=== PATIENT | male | born 1975 | race Caucasian/White ===

== ENCOUNTER 2016-05-28 07:39 | Inpatient (IN) ==
[2016-05-28] MEDS ORDERED: HYDROmorphone 2 MG/1 ML VIAL IV STA ×2 (08:26→09:18)
[2016-05-28] MEDS ORDERED: ONDANSETRON 4 MG/2 ML VIAL IV STA (08:26)
[2016-05-28] MEDS ORDERED: SODIUM CHLORIDE 0.9% 1,000 ML IV STA (08:26)
[2016-05-28] MEDS ORDERED: ONDANSETRON 4 MG/2 ML VIAL ONE (08:37)
[2016-05-28] MEDS ORDERED: HYDROmorphone 2 MG/1 ML VIAL ONE ×2 (08:37→11:57)
[2016-05-28 08:48] LABS: Basophils # 0.1 10*3/uL (0.0-0.2); Basophils % 0.7 % (0.0-0.8); Eosinophils # 1.4 10*3/uL (0.0-0.87); Eosinophils % 12.2 % (0.00-10.9); Hematocrit 38.6 VOL% (42.0-52.0); Hemoglobin 12.1 GM/DL (14.0-18.0); Immature Granulocytes % 0.6 %; Immature Granulocytes Absolute 0.07 #; Lymphocytes # 2.2 10*3/uL (1.4-4.0); Lymphocytes % 19.2 % (21.2-54.2); Mean Corpuscular HGB Conc 31.3 GM/DL (32-36); Mean Corpuscular Hemoglobin 26 PG (27-34); Mean Corpuscular Volume 83.5 FL (87-102); Mean Platelet Volume 9.4 FL (9.6-12.0); Monocytes # 0.3 10*3/uL (0.11-0.8); Monocytes % 2.6 % (1.7-12.7); Neutrophils # 7.4 10*3/uL (1.4-7.4); Neutrophils % 64.7 % (38.7-73.9); Platelet Count 389 10*3/uL (130-400); Red Blood Count 4.62 10*6/uL (3.8-5.5); Red Cell Distribution Width 16.4 % (9.3-17.3); White Blood Count 11.4 10*3/uL (4.5-13.71)
[2016-05-28 09:19] LABS: Lactic Acid 1.7 MMOL/L (0.4-2.0)
[2016-05-28 09:34] LABS: Alanine Aminotransferase 27 U/L (16-61); Albumin 3.7 G/DL (3.4-5.0); Alkaline Phosphatase 115 U/L (45-117); Aspartate Amino Transferase 17 U/L (0-37); Bilirubin,Total < 0.39 MG/DL (0.2-1.0); Blood Urea Nitrogen 18 MG/DL (7-18); Calcium 8.7 MG/DL (8.5-10.1); Glucose 110 MG/DL (74-106); Potassium 4.3 MMOL/L (3.5-5.1); Sodium 143 MMOL/L (136-145); Total Protein 6.8 G/DL (6.4-8.3)
[2016-05-28 09:50] LABS: Band Neutrophils 1 % (0-10); Eosinophils 11 % (0-10); Hypochromasia 1+; Lymphocytes 17 % (20-55); Platelet Estimate Adequate; Segmented Neutrophils 68 % (50-85); Target Cells Slight; Total Cells Counted 100
--- NOTE | 2016-05-28 10:13 | CT Report ---
CT abdomen pelvis w con Indication: Generalized abdominal pain. Comparison: CT of abdomen and pelvis April 29, 2010. Technique: CT of the abdomen and pelvis was performed following administration of intravenous contrast. Findings: Lower chest demonstrates pleural-based pulmonary nodule within the right middle lobe measuring 4-5 mm in size. This has changed little in size or appearance since April 2010. Lower lungs otherwise are clear. Heart size is normal. Enlarged lymph nodes adjacent the lesser curvature of the stomach along branches of the gastric artery are stable in size to perhaps slightly decreased in size compared to the previous study. Additional enlarged lymph nodes bordering the hepatic artery also appears stable. Portacaval lymph nodes are stable. Surgical changes exist suggesting right hemicolectomy. Ileocolic lymph nodes and mesenteric lymph nodes are enlarged, but have changed little in size since comparison study. Additional aorto-intercaval lymph node image #87 is stable. The terminal small bowel demonstrates circumferential wall thickening is demonstrated on image #98 with the lumen of the small bowel becoming nearly indistinguishable secondary to wall thickening image #90. Proximal to this within the distal small bowel, there is extensive small bowel stool present suggesting that this could reflect a developing point of obstruction with existing partial obstruction. These areas of bowel wall thickening and luminal narrowing persists in the delayed phase. Differential considerations could include entities such as inflammatory bowel disease as well as other infiltrative processes such as small bowel lymphoma, correlation with prior history may be useful. A new moderately enlarged left inguinal lymph node is demonstrated which has increased in size since comparison study now measuring 2.8 x 1.9 cm. Additional left pelvic sidewall lymph node is enlarged, but has changed little in size since comparison study. Bony structures demonstrate no evidence of acute pathology. Mild stimulator device is noted within the posterior flank on the right. Extensive sclerotic change/attenuation of the SI joints is noted bilaterally and appear stable compared to prior study. Otherwise, the imaged structures of the lower chest, liver, spleen, pancreas, adrenal glands, kidneys, aorta, inferior vena cava, stomach, bowel, and intrapelvic contents as well as bony structures soft tissues and musculature the body wall demonstrate no evidence of significant pathology. Impression: 1. Multiple enlarged lymph nodes are noted within the upper abdomen, retroperitoneum, pelvis, and ileocolic mesentery. The majority of these lymph nodes appear to be stable in size and number. There is a lymph node within the left inguinal region however, that has increased in size since the comparison study as detailed. Differential considerations could include reactive etiologies as well as recurrent lymphoma in the correct clinical scenario. Correlation with patient's known clinical history is recommended. 2. Circumferential bowel wall thickening involving the terminal small bowel at as well as proximal to the anastomosis with the large bowel narrows the lumen of the small bowel significantly with these findings persisting into the delayed phase. Additionally, proximal to this narrowed segment, a significant amount small bowel stool is present suggesting stasis. More proximal small bowel loops also slightly distended. Differential considerations for this appearance could include small bowel lymphoma as well as inflammatory bowel disease. Correlation with prior known clinical history is recommended. 3. Bilateral sacroiliac joint sclerotic changes are noted. These findings are nonspecific but can be associated with inflammatory bowel disease. Other findings as detailed. 05/28/2016 9:17 AM PROCEDURE INTERPRETED AT [facility] DEPARTMENT OF RADIOLOGY Final Report Signed by: Dr. Jonathan Salmon
--- NOTE | 2016-05-28 10:54 | Emergency Department Note ---
Saeid Huff Brittany, am scribing for, and in the presence of, Chivo Bourgeois MD 08:29. Bk Huff Doug C, MD, personally performed the services described in this documentation, ascribed by Gabrielle Breaux in my presence, and it is both accurate and complete . Arrival - Arrival Chief Complaint: Abdominal / Flank Pain Stated Complaint: N/V/D BLOOD IN STOOL, DIZZY, AND ABD CRAMPS ED Nursing Triage Note: c/o having abd.cramps since last evening, states has a history of hemorrhoids and now is having bright red stools x 2 this am., denies having temp., + chills., Mode of Arrival: Wheelchair Limitations: No Limitations Source: Patient, RN Notes Reviewed Time Seen by Provider: 05/28/16 08:19 - History of Present Illness HPI Narrative: Patient is a 40-year-old black male who presents emergency room complaining of abdominal cramping and bloody diarrhea that started this morning. Patient states he is having some chills and sweats associated with this. He has a history of Crohn's disease and is on no medical treatment for his Crohn's at present. Patient states he had a previous bowel resection at least 10 years ago states she has not had any trouble with his Crohn's disease since then. He denies any urinary symptoms and is not having any respiratory symptoms as well. Allergies/Adverse Reactions: Allergies Allergy/AdvReac Type Severity Reaction Status Date / Time No Known Allergies Allergy Unverified 05/28/16 07:53 Review of System - Review of System 12 point system: reviewed and no additional remarkable complaints except as stated - Review of System Constitutional: Present: chills, fever Eyes: Absent: vision change Head/Ears/Nose/Throat: Absent: nasal drainage Respiratory: Absent: respiratory distress Cardiovascular: Absent: chest pain, palpitations Gastrointestinal: Present: abdominal pain, nausea, vomiting, hematochezia Genitourinary male: Absent: urgency, dysuria, frequency Musculoskeletal: Absent: arm pain, back pain, leg pain, neck pain Skin: Absent: rash Neurological: Absent: headache Psychiatric: Absent: anxiety, depression Endocrine: Absent: fatigue Hematological/Lymphatic: Absent: easy bleeding, easy bruising Medical,Surgical,& Family Hx - Medical History Gastrointestinal: History of: Crohn's Disease Musculoskeletal: History of: Back/Neck Problems (chronic leg pain) - Surgical History Abdominal Surgeries: Surgical HX of: Abdominal Surgery (Bowel resection) - Family History Family History: noncontributory - Social History Smoking Status: Smoker, status unknown Frequency of Alcohol Use: None Type of Drug Use: None Exam Vital Signs: Vital Signs Temperature 98.2 F 05/28/16 07:48 Pulse Rate 76 05/28/16 10:22 Respiratory Rate 14 05/28/16 09:18 Blood Pressure 126/89 05/28/16 10:22 O2 Sat by Pulse Oximetry 100 05/28/16 09:18 - General General appearance: alert, in no apparent distress - Head Head exam: Present: atraumatic, normocephalic - Eye Eye exam: Present: PERRL, EOMI - ENT ENT exam: Present: normal oropharynx, mucous membranes moist, other (edentulous) - Neck Neck exam: Present: full ROM, trachea midline. Absent: tenderness - Chest Chest inspection: Present: symmetric chest wall rise. Absent: tenderness - Respiratory Respiratory exam: Present: normal lung sounds bilaterally. Absent: rales, rhonchi, wheezes - Cardiovascular Cardiovascular exam: Present: regular rate, normal rhythm, normal heart sounds. Absent: murmur, rubs, gallop - Abdominal Exam Abdominal exam: Present: soft, tenderness (Mild diffuse direct tenderness), normal bowel sounds. Absent: distention, guarding, rebound - Extremities Exam Extremities exam: Present: full ROM. Absent: tenderness - Back Exam Back exam: Present: full ROM. Absent: tenderness - Neurological Exam Neurological exam: Present: alert, oriented X3, CN II-XII intact. Absent: motor sensory deficit - Psychiatric Psychiatric exam: Present: normal affect, normal mood - Skin Skin exam: Present: warm, dry, intact, normal color Course Course Narrative: Patient's clinical presentation, laboratory and radiographic findings were discussed with Dr. Gonzales. He will arrange for the patient to be admitted to the hospitalist service. Results - Labs CBC & BMP: 05/28/16 08:05 05/28/16 08:05 Lab Results: I have reviewed the patients labs Labs: Laboratory Tests 05/28/16 08:05 WBC 11.4 RBC 4.62 Hgb 12.1 L Hct 38.6 L MCV 83.5 L MCH 26 L MCHC 31.3 L RDW 16.4 Plt Count 389 MPV 9.4 L Neut % (Auto) 64.7 Lymph % (Auto) 19.2 L Union % (Auto) 2.6 Eos % (Auto) 12.2 H Baso % (Auto) 0.7 Neut # (Auto) 7.4 Lymph # (Auto) 2.2 Union # (Auto) 0.3 Eos # (Auto) 1.4 H Baso # (Auto) 0.1 Immature Gran % 0.6 Nucleated RBC % 0.0 Immature Gran # 0.07 Nucleated RBCs # 0.00 Laboratory Tests 05/28/16 05/28/16 08:05 08:05 Sodium 143 Potassium 4.3 Chloride 109 H Carbon Dioxide 22 Anion Gap 16.3 H BUN 18 Creatinine 1.10 GFR Calculation 103 BUN/Creatinine Ratio 16.00 Glucose 110 H Calculated Osmolality 287.0 Lactic Acid 1.7 Calcium 8.7 Total Bilirubin < 0.39 AST 17 ALT 27 Alkaline Phosphatase 115 C-Reactive Protein 1.13 H Total Protein 6.8 Albumin 3.7 Globulin 3.1 Albumin/Globulin Ratio 1.1 Laboratory Tests 05/28/16 08:05 Blood Type A POSITIVE Antibody Screen Negative Laboratory Tests 05/28/16 08:05 WBC 11.4 RBC 4.62 Hgb 12.1 L Hct 38.6 L MCV 83.5 L MCH 26 L MCHC 31.3 L RDW 16.4 Plt Count 389 MPV 9.4 L Neut % (Auto) 64.7 Lymph % (Auto) 19.2 L Union % (Auto) 2.6 Eos % (Auto) 12.2 H Baso % (Auto) 0.7 Neut # (Auto) 7.4 Lymph # (Auto) 2.2 Union # (Auto) 0.3 Eos # (Auto) 1.4 H Baso # (Auto) 0.1 Total Counted 100 Immature Gran % 0.6 Nucleated RBC % 0.0 Immature Gran # 0.07 Segmented Neutrophils 68 Band Neutrophils 1 Lymphocytes 17 L Monocytes 3 Eosinophils 11 H Nucleated RBCs # 0.00 Platelet Estimate Adequate Hypochromasia 1+ Target Cells Slight - Diagnostic Findings Procedure: CT Abdomen and Pelvis: report reviewed by me (1. Multiple enlarged lymph nodes are noted within the upper abdomen, retroperitoneum, pelvis, and ileocolic mesentery. The majority of these lymph nodes appear to be stable in size and number. There is a lymph node within the left inguinal region however, that has increased in size since the comparison study as detailed. Differential considerations could include reactive etiologies as well as current lymphoma in the correct clinical scenario. Correlation with patient's known clinical history is recommended; 2. Circumferential bowel wall thickening involving the terminal small bowel at as well as proximal to the anastamosis with the large bowel narrows the lumen of the small bowel significantly with these findings persisting into the delayed phase. Additionally, proximal to this narrowed segment, a significant amount of small bowel stool is present suggesting stasis. More proximal small bowel loops also slightly distended. Differential considerations for this appearance could include small bowel lymphoma as well as inflammatory bowel disease. Correlation with prior known clinical history is recommended; 3. Bilateral sacroiliac joint sclerotic changes are noted. These findings are nonspecific but can be associated with inflammatory bowel disease. Other findings are detailed. ) Disposition Clinical Impression: Hematochezia, Crohns disease Case discussed with: patient, patient's family Disposition: Still a Patient Condition: Stable Time of Disposition: 10:54
[2016-05-28 11:15] LABS: Apearance,Urine CLEAR (Clear); Bilirubin,Urine Negative (Negative); Blood, Urine Negative (Negative); Glucose,Urine (UA) Negative (Negative); Ketones,Urine Negative (Negative); Mucus,Urine Occasional /LPF (Occasional); Nitrite,Urine Negative (Negative); Protein,Urine Negative; RBC,Urine 3 /HPF (0-4); Squamous Epithelial Cell,Urine Occasional /HPF (0-10); Urine Color Yellow (Yellow); Urine Specific Gravity 1.055 (1.001-1.035); Urine Urobilinogen < 2.0 EU/DL (0.2-1.0); WBC,Urine 2 /HPF (0-6)
--- NOTE | 2016-05-28 11:29 | Hospitalist History & Physical ---
Assessment and Plan - Time spent with patient Time spent with patient: Greater than 30 minutes (1) Hematochezia Status: Acute Assessment and plan: We will admit him for IV hydration, serial hematocrits, and GI consultation. This is likely secondary to a Crohn's flare. I discussed with Dr. Corley, and I will defer initiating any corticosteroids or antibiotic therapy to him after he has evaluated. Current Visit: Yes (2) Crohns disease Status: Acute Assessment and plan: See above. Current Visit: Yes (3) Chronic pain syndrome Status: Chronic Assessment and plan: We'll continue his current regimen. He'll need to continue to follow up on outpatient basis. Current Visit: Yes History of Present Illness Chief complaint: bloody diarrhea History of present illness: Mr. Owens is a 40 year old male with history of Crohn's disease, chronic pain syndrome, peripheral arterial disease status post lower extremity stenting who presents with a 2-3 day history of lower abdominal cramping with associated nausea, emesis and watery diarrhea. He denies any associated fever or chills. He states that his abdominal cramping worsened this morning and he passed bright red blood per rectum on several occasions. He denies any chest pain, shortness breath, palpitations, skin rash, weight loss or weight gain, heartburn or indigestion, night sweats, headache, upper respiratory tract symptoms, dysuria, hematuria. His current medications include Neurontin 800 mg by mouth 4 times a day, Ambien daily at bedtime when necessary sleep, methadone 50 mg by mouth daily. He is currently searching for a primary care physician locally. Home Medications Medication Instructions Recorded Confirmed Type Butalb/Acetaminophen/Caffeine 1 tablet PO Q4-6H PRN 05/28/16 05/28/16 History [Czsiky-Ijszpjiu-Vjgh 50-325-40] Gabapentin [Gabapentin] 800 mg PO QID 05/28/16 05/28/16 History Methadone HCl [Methadone HCl] 50 mg PO DAILY 05/28/16 05/28/16 History Zolpidem Tartrate [Zolpidem 5 mg PO BEDTIME PRN 05/28/16 05/28/16 History Tartrate] Allergies Allergy/AdvReac Type Severity Reaction Status Date / Time No Known Allergies Allergy Unverified 05/28/16 07:53 Medical,Surgical,& Family Hx - Medical History Gastrointestinal: History of: Crohn's Disease Musculoskeletal: History of: Back/Neck Problems (chronic leg pain) - Surgical History Abdominal Surgeries: Surgical HX of: Abdominal Surgery (Bowel resection), Appendectomy Orthopedic Surgeries: Surgical HX of;: Implanted Devices (SCS) - Family History Family History: Reports;: Family Heart Disease, Additional Family History ( father has ulcerative colitis ) - Social History Smoking Status: Former smoker Have you smoked in the last 12 months: Yes Time spent discussing smoking cessation with patient: 3 to 10 minutes (mother had an [facility] in the past and is status post stenting) Frequency of Alcohol Use: None Type of Drug Use: None Marital Status: Lives With:: Parent Functional capacity: independent ambulation 12 point system: reviewed and no additional remarkable complaints except as stated Exam - Constitutional Vitals: Period Temp Pulse Resp BP Sys/[place] Pulse Ox Last 24 Hr 98.2 F 65-96 14-18 107-145/77-99 96-100 General appearance: mild distress - Head Head exam: Present: normocephalic, atraumatic - Eye Eye exam: Present: EOMI Pupils: Present: CHASE - ENT ENT exam: Present: normal oropharynx - Neck Neck exam: Absent: lymphadenopathy, meningismus, tenderness, thyromegaly - Respiratory Respiratory exam: Present: clear to auscultation bilaterally. Absent: rales, rhonchi, wheezes - Cardiovascular Cardiovascular exam: Present: regular rate and rhythm. Absent: gallop, JVD, systolic murmur, tachycardia - GI/Abdominal GI/Abdominal exam: Present: normal bowel sounds, soft. Absent: distended, mass , tenderness, rebound - Extremities Exam Extremities exam: Present: normal capillary refill. Absent: calf tenderness, edema - Back Exam Back exam: Present: normal inspection - Neurological Exam Neurological exam: Present: alert, oriented X3, CN II-XII intact. Absent: motor sensory deficit - Psychiatric Psychiatric exam: Present: normal affect, normal mood. Absent: agitated, anxious - Skin Skin exam: Present: warm, dry. Absent: erythema, rash Results - Labs CBC & BMP: 05/28/16 08:05 05/28/16 08:05 Lab Results: I have reviewed the past 24 hour labs - Diagnostic Findings Procedure: CT Abdomen and Pelvis: report reviewed by me Quality Measures - VTE Deep Vein Thrombosis/Pulmonary Embolism Present on Admission: No
[2016-05-28] MEDS ORDERED: HYDROmorphone 2 MG/1 ML VIAL IV ONE (11:56)
[2016-05-28] MEDS ORDERED: INFLUENZA VIRUS VACCINE 0.5 ML SYRINGE IM ONE (12:23)
[2016-05-28] MEDS: SODIUM CHLORIDE 0.45% 1,000 ML IV SCH ×2 (12:39→20:24)
[2016-05-28] MEDS: PANTOPRAZOLE 40 MG VIAL IV SCH (12:48)
[2016-05-28] MEDS: THIAMINE 200 MG/2 ML VIAL IV SCH (12:48)
[2016-05-28 13:13] LABS: Hematocrit 35.4 VOL% (42.0-52.0); Hemoglobin 11.1 GM/DL (14.0-18.0)
--- NOTE | 2016-05-28 13:27 | Gastrointestinal Consult Note ---
Assessment and Plan (1) Crohns disease Status: Acute Assessment and plan: This is a patient who was diagnosed initially in 1995 and this had multiple episodes of Crohn's flares over the years with chronic adenopathy noted throughout the colon and small bowel. I strongly suspect that he probably has upper and lower GI disease with his Crohn's. He is on no medications at this point. The most effective medication would likely be Entocort but will try him on Pentasa as well as treating underlying infections with a combination of Cipro and Flagyl. His stools are pending to look for evidence of infectious colitis/enteritis. We may tach on a colonoscopy during the terminal face of his hospitalization here. Agree with checking the CBC daily. Current Visit: Yes (2) Hematochezia Status: Acute Assessment and plan: The patient is having some rectal bleeding of unclear etiology this may be the Crohn's disease or hemorrhoidal bleeding with his mild diarrhea. Colonoscopy to follow this admission. Clear liquid diet for the present time. We may add on the colonoscopy for Monday05/31/16. Current Visit: Yes (3) Abnormal CT scan, gastrointestinal tract Status: Acute Assessment and plan: Patient has enlarged lymph nodes throughout his abdomen. We will look for evidence of classic Crohn's disease on colonoscopy to follow later this admission as mentioned above. We'll obtain a sedimentation rate as well to look for the overall activity of the Crohn's disease here in the short-term. Risks of colonoscopy include but are not limited to: Bleeding, infection, perforation, cardiac and pulmonary compromise. Current Visit: Yes History of Present Illness Chief complaint: possible Crohn's flare, abnormal CT scan History of present illness: Mr. Owens is a 40 year old male who has a history of Crohn's disease which was diagnosed [place] in [address] Weldon. He is not having flares on a routine basis at this time, his last real flare was approximately 5 years ago. Patient had seen also Dr. Costa for potential ERCP on 04/28/10 but unfortunately it was discovered that he had a Fidelia-Bui tear at that time and the procedure was aborted. This was being done to look for common bile duct stricturing. Patient has had popliteal aneurysms with recurrent thrombosis and stenting//grafts. He recently discontinued smoking approximately 3 weeks ago. This is the first flare he's had an approximately 1 year. He presented with cramps nausea and vomiting as well as increasing diarrhea over the last 2-3 days and today he developed severe pain in her right lower quadrant proximally 6 out of 10 in intensity and cramping as well. He is passing some scant amount of blood. Not have fevers or chills. He does not recall eating anything unusual out of the back of the refrigerator/spoiled food , oysters or sushi. He has not been around any sick contacts. He is interviewed in the presence of his mother who corroborates his story. The patient has undergone a right hemicolectomy as a result of his previous Crohn's disease. He has chronic pain in his legs and sees Eddi Ocampo a pain management physician in [place] who prescribes his methadone for him. He is wanting to see someone locally here in [place] instead. On previous admissions he has seen Dr. Rebolledo of total pain. He is only having proximally to 3 bowel movements per day but again these have become bloody lately. Been on Pentasa that he can recall. He typically does not take medications for his Crohn's. His last time to be scoped was approximately 5 years ago he thinks by Dr. Weldon. EMR does not demonstrate reports for this procedure. The patient 's abdominal pelvic CT scan done today demonstrates multiple large lymph nodes within the upper abdomen, retroperitoneum, pelvis and ileocolic mesentery is stable in size and number from earlier evaluations. Circumferential bowel wall thickening is noted in the terminal TI and proximal to the anastomosis of the large bowel bilateral sacroiliac sclerosis is noted associated with inflammatory bowel disease. Home Medications Medication Instructions Recorded Confirmed Type Butalb/Acetaminophen/Caffeine 1 tablet PO Q4-6H PRN 05/28/16 05/28/16 History [Wvrldr-Yqsifgcv-Wdcs 50-325-40] Gabapentin [Gabapentin] 800 mg PO QID 05/28/16 05/28/16 History Methadone HCl [Methadone HCl] 50 mg PO DAILY 05/28/16 05/28/16 History Zolpidem Tartrate [Zolpidem 5 mg PO BEDTIME PRN 05/28/16 05/28/16 History Tartrate] Allergies Allergy/AdvReac Type Severity Reaction Status Date / Time No Known Allergies Allergy Unverified 05/28/16 07:53 Medical,Surgical,& Family Hx - Medical History Gastrointestinal: History of: Crohn's Disease Musculoskeletal: History of: Back/Neck Problems (chronic leg pain) - Surgical History Neurologic Surgeries: Surgical HX of: Neurologic Surgery (neuro stimulatpr) Abdominal Surgeries: Surgical HX of: Abdominal Surgery (Bowel resection), Appendectomy Orthopedic Surgeries: Surgical HX of;: Implanted Devices (SCS) - Family History Family History: Reports;: Family Heart Disease, Additional Family History ( father has ulcerative colitis ) - Social History Smoking Status: Former smoker Frequency of Alcohol Use: None Type of Drug Use: None Review of systems: Constitutional: Denies fever, chills, positive for nausea, and vomiting Eyes: Denies dry eyes, and scleral icterus HENT: Denies headaches Cardiovascular: Denies acute chest pain and claudication Respiratory: Denies shortness of breath, wheezing, and difficulty breathing, denies cough Gastrointestinal: As noted in the HPI Genitourinary: Denies dysuria and hematuria Neurologic: Denies vision loss, and loss of sensation Musculoskeletal: He does have some joint swelling, joint stiffness, and muscular weakness Psychiatric: Denies depression and luis symptoms Heme-Lymph: Denies easy bruising, lymph node enlargement or tenderness, night sweats, excessive bleeding Allergies-immunologic: Denies pruritus and rhinorrhea Exam - Constitutional Vitals: Period Temp Pulse Resp BP Sys/[place] Pulse Ox Last 24 Hr 98.5 F 70-75 20-21 109-133/72-93 97-98 Exam: Constitutional: Well-developed, well-nourished, alert, and in no acute distress Head and face: Head: Normocephalic atraumatic Eyes: Conjunctiva without injection, no gross scleral icterus, pupils equal and round bilaterally Ears: Intact to conversation in both ears Nose: External appearance is normal, nares patent Mouth: Oral mucous membranes moist without erythema dentition noted to be without erosion Neck: Normal appearance, no masses or tenderness, trachea midline Thyroid: Gland midline and appropriate size for age Respiratory: Normal respiratory effort, clear to auscultation without wheezes, rhonchi or rales Cardiovascular: Regular rate and rhythm, normal S1, S2, the exam is without rubs, murmurs or gallops. Gastrointestinal: The patient has some minimal right lower quadrant tenderness to deep palpation but no other pain to palpation, normal active bowel sounds, tone normal without rigidity or guarding, no masses present, no hepatomegaly, no spleen tip felt. No rectal exam obtained. Lymphatic: Neck without adenopathy, axilla without lymphadenopathy present Musculoskeletal: Right and left lower extremities without evidence of edema Skin and subcutaneous tissue: No rashes or ulcerations noted, normal skin turgor, digits and nails without clubbing/cyanosis/deformities. Neurologic: The patient is grossly oriented to person place and time, cranial nerves show tongue movements are normal with normal tongue extrusion midline, light touch sensation is intact. Psychiatric: No hallucinations or delusions are present, does not appear depressed Results - Labs CBC & BMP: 05/28/16 12:50 05/28/16 08:05 Quality Measures - VTE Contraindication to Pharmacological VTE Prophylaxis: Active Bleeding Specialty Discharge - Follow Up or Referrals - Discharge Medications No Action Zolpidem Tartrate [Zolpidem Tartrate] 5 mg PO BEDTIME PRN PRN Reason: Insomnia Methadone HCl [Methadone HCl] 50 mg PO DAILY Gabapentin [Gabapentin] 800 mg PO QID Butalb/Acetaminophen/Caffeine [Ymttbt-Vajcmzjb-Yuas 50-325-40] 1 tablet PO Q4 -6H PRN PRN Reason: Headache
[2016-05-28] MEDS: MULTIVITAMIN INJ 10 ML in SODIUM CHLORIDE 0.45% 1,000 ML IV SCH (14:24)
[2016-05-28] MEDS: ONDANSETRON 4 MG/2 ML VIAL IV PRN (14:27)
[2016-05-28] MEDS: GABAPENTIN 400 MG CAPSULE PO SCH ×3 (14:28→20:08)
[2016-05-28] MEDS: MORPHINE 2 MG/1 ML SYRINGE IV PRN ×2 (15:52→20:25)
[2016-05-28] MEDS: CIPROFLOXACIN INJ 400 MG in PREMIX 1 EACH IV SCH (16:43)
[2016-05-28] MEDS: metroNIDAZOLE INJ 500 MG in PREMIX 1 EACH IV SCH (16:44)
[2016-05-28] MEDS ORDERED: MESALAMINE 250 MG CAPSULE PO SCH (17:00)
[2016-05-28 18:20] LABS: Hemoglobin 10.6 GM/DL (14.0-18.0)
[2016-05-28] MEDS: ZALEPLON 5 MG CAPSULE PO PRN (20:08)
[2016-05-29] MEDS: MORPHINE 2 MG/1 ML SYRINGE IV PRN ×5 (00:36→19:50)
[2016-05-29] MEDS: ONDANSETRON 4 MG/2 ML VIAL IV PRN ×4 (00:56→16:59)
[2016-05-29 01:05] LABS: Hematocrit 33.4 VOL% (42.0-52.0); Hemoglobin 10.7 GM/DL (14.0-18.0)
[2016-05-29 01:06] LABS: Basophils # 0.1 10*3/uL (0.0-0.2); Basophils % 0.7 % (0.0-0.8); Eosinophils # 0.9 10*3/uL (0.0-0.87); Eosinophils % 9.5 % (0.00-10.9); Hemoglobin 10.7 GM/DL (14.0-18.0); Immature Granulocytes % 0.4 %; Immature Granulocytes Absolute 0.04 #; Lymphocytes # 2.5 10*3/uL (1.4-4.0); Lymphocytes % 27.6 % (21.2-54.2); Mean Corpuscular HGB Conc 31.5 GM/DL (32-36); Mean Corpuscular Hemoglobin 27 PG (27-34); Mean Corpuscular Volume 85.2 FL (87-102); Mean Platelet Volume 9.2 FL (9.6-12.0); Monocytes # 0.3 10*3/uL (0.11-0.8); Monocytes % 3.7 % (1.7-12.7); Neutrophils # 5.3 10*3/uL (1.4-7.4); Neutrophils % 58.1 % (38.7-73.9); Platelet Count 318 10*3/uL (130-400); Red Blood Count 3.99 10*6/uL (3.8-5.5); Red Cell Distribution Width 16.5 % (9.3-17.3); White Blood Count 9.2 10*3/uL (4.5-13.71)
[2016-05-29] MEDS: metroNIDAZOLE INJ 500 MG in PREMIX 1 EACH IV SCH ×4 (01:10→22:43)
[2016-05-29 01:24] LABS: Albumin 3.2 G/DL (3.4-5.0); Bilirubin,Total 0.7 MG/DL (0.2-1.0); Calcium 7.2 MG/DL (8.5-10.1); Osmolality,Calculated 284.8 MOS/KG (273-304); Total Protein 6.1 G/DL (6.4-8.3)
[2016-05-29] MEDS: CIPROFLOXACIN INJ 400 MG in PREMIX 1 EACH IV SCH ×2 (02:52→15:04)
[2016-05-29] MEDS: SODIUM CHLORIDE 0.45% 1,000 ML IV SCH ×4 (05:52→11:56)
[2016-05-29 06:31] LABS: Hemoglobin 10.4 GM/DL (14.0-18.0)
[2016-05-29] MEDS: GABAPENTIN 400 MG CAPSULE PO SCH ×5 (09:12→22:33)
[2016-05-29] MEDS: METHADONE 10 MG TABLET PO SCH (09:13)
[2016-05-29] MEDS: THIAMINE 200 MG/2 ML VIAL IV SCH (09:14)
--- NOTE | 2016-05-29 09:15 | Hospitalist Progress Note ---
Assessment and Plan - Time spent with patient Time spent with patient: Less than 30 minutes (1) Hematochezia Status: Acute Assessment and plan: We will admit him for IV hydration, serial hematocrits, and GI consultation. This is likely secondary to a Crohn's flare. I discussed with Dr. Corley, and I will defer initiating any corticosteroids or antibiotic therapy to him after he has evaluated. 05/29/16: Continue with daily CBC. Patient is been started on empiric IV antibiotics as well as Pentasa by Dr. Corley. No plans for possible colonoscopy prior to discharge. Current Visit: Yes (2) Crohns disease Status: Acute Assessment and plan: See above. Current Visit: Yes (3) Chronic pain syndrome Status: Chronic Assessment and plan: We'll continue his current regimen. He'll need to continue to follow up on outpatient basis. Current Visit: Yes Hospitalist: Subjective Interval history: Mr. Owens continues to have intermittent abdominal cramping with some associated nausea but denies any vomiting. He denies any further diarrhea or bloody stools. He was seen by Dr. Pruitt yesterday was begun on empiric IV antibiotics as well as Pentasa. Stool studies are pending. Exam - Constitutional Vitals: Period Temp Pulse Resp BP Sys/[place] Pulse Ox Last 24 Hr 98.1 F-98.5 F 69-80 18-21 94-133/61-93 97-98 General appearance: no acute distress - Head Head exam: Present: normocephalic, atraumatic - Eye Eye exam: Present: EOMI Pupils: Present: CHASE - ENT ENT exam: Present: normal oropharynx - Neck Neck exam: Present: normal inspection - Respiratory Respiratory exam: Present: clear to auscultation bilaterally. Absent: rales, rhonchi, wheezes - Cardiovascular Cardiovascular exam: Present: regular rate and rhythm. Absent: systolic murmur - GI/Abdominal GI/Abdominal exam: Present: normal bowel sounds, tenderness (mildly tender diffusely without rebound or guarding). Absent: distended - Extremities Exam Extremities exam: Absent: calf tenderness, edema - Back Exam Back exam: Present: normal inspection - Neurological Exam Neurological exam: Present: alert, oriented X3, CN II-XII intact. Absent: motor sensory deficit - Psychiatric Psychiatric exam: Present: normal affect, normal mood. Absent: agitated, anxious - Skin Skin exam: Present: warm, dry. Absent: erythema, rash Results - Labs CBC & BMP: 05/29/16 06:09 05/29/16 00:47 Lab Results: I have reviewed the past 24 hour labs Quality Measures - VTE Contraindication to Pharmacological VTE Prophylaxis: Active Bleeding Specialty Discharge - Follow Up or Referrals - Discharge Medications No Action Zolpidem Tartrate [Zolpidem Tartrate] 5 mg PO BEDTIME PRN PRN Reason: Insomnia Methadone HCl [Methadone HCl] 50 mg PO DAILY Gabapentin [Gabapentin] 800 mg PO QID Butalb/Acetaminophen/Caffeine [Wygbpx-Etjdobxz-Ztzp 50-325-40] 1 tablet PO Q4 -6H PRN PRN Reason: Headache
[2016-05-29] MEDS: PANTOPRAZOLE 40 MG VIAL IV SCH (09:16)
[2016-05-29] MEDS: MULTIVITAMIN INJ 10 ML in SODIUM CHLORIDE 0.45% 1,000 ML IV SCH (12:35)
[2016-05-29] MEDS ORDERED: POLYETHYLENE GLYCOL POWDER 255 GM BOTTLE PO ONE (16:45)
--- NOTE | 2016-05-29 16:45 | Gastrointestinal Progress Note ---
Assessment and Plan (1) Crohns disease Status: Acute Assessment and plan: This is a patient who was diagnosed initially in 1995 and this had multiple episodes of Crohn's flares over the years with chronic adenopathy noted throughout the colon and small bowel. I strongly suspect that he probably has upper and lower GI disease with his Crohn's. He is on no medications at this point. The most effective medication would likely be Entocort but will try him on Pentasa as well as treating underlying infections with a combination of Cipro and Flagyl. His stools are pending to look for evidence of infectious colitis/enteritis. We may tach on a colonoscopy during the terminal face of his hospitalization here. Agree with checking the CBC daily. 05/29/16--Patient is still having some tenderness in the right lower quadrant. He would like to leave the hospital but earlier and so we will push up the colonoscopy took tomorrow and he can bowel prep adequately tonight. CBC repeat pending. Examined his colon to see if this is truly a Crohn's flare versus infectious colitis, we may put him on some Entocort if this does appear to be consistent with Crohn's as opposed to the Pentasa being use presently. Current Visit: Yes (2) Hematochezia Status: Acute Assessment and plan: The patient is having some rectal bleeding of unclear etiology this may be the Crohn's disease or hemorrhoidal bleeding with his mild diarrhea. Colonoscopy to follow this admission. Clear liquid diet for the present time. We may add on the colonoscopy for Monday05/31/16. 05/29/16-- we will be rechecking the patient's rectum tomorrow during colonoscopy to see if we can find a bleeding source. He's been on clear liquids and should be obtained to bowel prep tonight adequately to see the small bowel. Provided the examination of the colon looks all right he may be able to be fed and then discharge tomorrow post-colonoscopy. Current Visit: Yes (3) Abnormal CT scan, gastrointestinal tract Status: Acute Assessment and plan: Patient has enlarged lymph nodes throughout his abdomen. We will look for evidence of classic Crohn's disease on colonoscopy to follow later this admission as mentioned above. We'll obtain a sedimentation rate as well to look for the overall activity of the Crohn's disease here in the short-term. Risks of colonoscopy include but are not limited to: Bleeding, infection, perforation, cardiac and pulmonary compromise. 05/29/16-- Waiting on results of the colonoscopy tomorrow. Current Visit: Yes Gastroenterology - PN: Subj Interval history: Pain slightly better but diarrhea is down to just 1 per day. No other new complaints. Exam (Progress Note) - Constitutional Vitals: Period Temp Pulse Resp BP Sys/[place] Pulse Ox Last 24 Hr 98.0 F-98.5 F 63-80 18-20 92-130/61-68 96-99 General appearance: normal weight - Eye Eye exam: Present: EOMI Pupils: Present: CHASE - Respiratory Respiratory exam: Present: clear to auscultation bilaterally - Cardiovascular Cardiovascular exam: Present: regular rate and rhythm - GI/Abdominal GI/Abdominal exam: Present: normal bowel sounds, tenderness (assessment right lower quadrant consistent with Crohn's flare), soft. Absent: distended, guarding, rebound - Extremities Exam Extremities exam: Present: normal inspection - Neurological Exam Neurological exam: Present: alert, oriented X3, CN II-XII intact. Absent: motor sensory deficit - Psychiatric Psychiatric exam: Present: normal affect, normal mood - Skin Skin exam: Present: warm Results - Labs CBC & BMP: 05/29/16 12:43 05/29/16 00:47 Specialty Discharge - Follow Up or Referrals - Discharge Medications No Action Zolpidem Tartrate [Zolpidem Tartrate] 5 mg PO BEDTIME PRN PRN Reason: Insomnia Methadone HCl [Methadone HCl] 50 mg PO DAILY Gabapentin [Gabapentin] 800 mg PO QID Butalb/Acetaminophen/Caffeine [Beckdx-Ithhkghx-Gdhe 50-325-40] 1 tablet PO Q4 -6H PRN PRN Reason: Headache
[2016-05-29] MEDS: BISACODYL 5 MG TABLET PO SCH (16:57)
[2016-05-29 18:51] LABS: Hematocrit 34.2 VOL% (42.0-52.0); Hemoglobin 10.9 GM/DL (14.0-18.0)
[2016-05-29] MEDS ORDERED: MAGNESIUM CITRATE 300 ML BOTTLE PO ONE (21:00)
[2016-05-29] MEDS: ZALEPLON 5 MG CAPSULE PO PRN (22:44)
[2016-05-30] MEDS: MORPHINE 2 MG/1 ML SYRINGE IV PRN ×4 (01:25→20:51)
[2016-05-30] MEDS: CIPROFLOXACIN INJ 400 MG in PREMIX 1 EACH IV SCH (01:32)
[2016-05-30] MEDS: BISACODYL 5 MG TABLET PO SCH ×2 (01:32→11:51)
[2016-05-30] MEDS: metroNIDAZOLE INJ 500 MG in PREMIX 1 EACH IV SCH (05:52)
[2016-05-30 06:17] LABS: Basophils # 0.1 10*3/uL (0.0-0.2); Basophils % 0.6 % (0.0-0.8); Eosinophils # 0.6 10*3/uL (0.0-0.87); Eosinophils % 7.2 % (0.00-10.9); Hematocrit 34.5 VOL% (42.0-52.0); Hemoglobin 10.9 GM/DL (14.0-18.0); Immature Granulocytes % 0.3 %; Immature Granulocytes Absolute 0.02 #; Lymphocytes # 1.9 10*3/uL (1.4-4.0); Lymphocytes % 24.5 % (21.2-54.2); Mean Corpuscular HGB Conc 31.6 GM/DL (32-36); Mean Corpuscular Hemoglobin 27 PG (27-34); Mean Corpuscular Volume 84.6 FL (87-102); Mean Platelet Volume 9.8 FL (9.6-12.0); Monocytes # 0.3 10*3/uL (0.11-0.8); Monocytes % 3.7 % (1.7-12.7); Neutrophils # 4.9 10*3/uL (1.4-7.4); Neutrophils % 63.7 % (38.7-73.9); Platelet Count 299 10*3/uL (130-400); Red Blood Count 4.08 10*6/uL (3.8-5.5); Red Cell Distribution Width 16.2 % (9.3-17.3); White Blood Count 7.7 10*3/uL (4.5-13.71)
[2016-05-30 06:52] LABS: Calcium 8.4 MG/DL (8.5-10.1); Potassium 4.5 MMOL/L (3.5-5.1)
[2016-05-30] MEDS: PANTOPRAZOLE 40 MG VIAL IV SCH (08:59)
[2016-05-30] MEDS: THIAMINE 200 MG/2 ML VIAL IV SCH (09:02)
--- NOTE | 2016-05-30 10:52 | Hospitalist Progress Note ---
Assessment and Plan (1) Crohns disease Status: Acute Assessment and plan: He is to undergo colonoscopy today. Await GI recommendations. Current Visit: Yes Exam - Constitutional Vitals: Period Temp Pulse Resp BP Sys/[place] Pulse Ox Last 24 Hr 98.1 F-98.7 F 66-76 16-20 92-141/61-112 94-99 General appearance: no acute distress - Respiratory Respiratory exam: Present: clear to auscultation bilaterally - Cardiovascular Cardiovascular exam: Present: regular rate and rhythm - GI/Abdominal GI/Abdominal exam: Present: normal bowel sounds, soft, other (nontender) - Extremities Exam Extremities exam: Present: normal inspection - Skin Skin exam: Present: normal color Results - Labs CBC & BMP: 05/30/16 05:44 05/30/16 05:44 Quality Measures - VTE Contraindication to Pharmacological VTE Prophylaxis: Active Bleeding Specialty Discharge - Follow Up or Referrals - Discharge Medications No Action Zolpidem Tartrate [Zolpidem Tartrate] 5 mg PO BEDTIME PRN PRN Reason: Insomnia Methadone HCl [Methadone HCl] 50 mg PO DAILY Gabapentin [Gabapentin] 800 mg PO QID Butalb/Acetaminophen/Caffeine [Qibclk-Ovrpplaa-Mrlk 50-325-40] 1 tablet PO Q4 -6H PRN PRN Reason: Headache
[2016-05-30] MEDS ORDERED: PROPOFOL 200 MG/20 ML VIAL IV ONE (11:04)
[2016-05-30] MEDS ORDERED: LIDOCAINE 1% 5 ML VIAL ONE (11:04)
--- NOTE | 2016-05-30 11:34 | Anesthesia ---
Anesthesia Post OP - Post Ansesthetic Evaluation Patient seen in post op: Yes Resp: within normal limits CV: within normal limits Mental: within normal limits Temp: within normal limits [id number]: within normal limits Nausea and Vomiting: within normal limits Pain: within normal limits
--- NOTE | 2016-05-30 11:41 | Operative Note ---
Date of procedure: 05/30/16 Pre-op diagnosis: anemia with hematocrit 33%, history of Crohn's post right hemicolectomy Post-op diagnosis: other (This patient has not been scoped 10 years, was previously diagnosed by Dr. Weldon by report and is now status post right hemicolectomy with some residual Crohn's disease noted in the small bowel status post biopsy. I do not see any gross evidence of a colitis present and we will go ahead and discontinue the antibiotics is only minimal changes occurred the patient's white blood cell count. I will put the patient on some low-dose Entocort EC at 3 mg per day to cover his Crohn's. Going discontinuing the Pentasa as this will be difficult for the patient to take on an ongoing basis, and probably is going to be of minimal help.) Procedure: PROCEDURE: Colonoscopy with cold biopsy for pathology REFERRING PHYSICIAN: Kris Wheat M.D. INDICATIONS: Crohn's disease and rectal bleeding The prior H&P was reviewed and interrim changes are as noted: Or change in GI consultation yesterday ENDOSCOPIST: Miguel Corley MD ENDOSCOPE: Olympus Video 100 System colonoscope COLON PREPARATION: 238 gm of PEG containing laxative and 1.9 liters of gatoraid/sports drink and dulcolax 15 mg q8 hours x 3 ASA CLASS: 3 EXAM: CV: regular rate and rhythm Respiratory: Clear without wheezes Abdominal: active bowel sounds Rectal: Good tone, no fissures or fistulas MEDICATION: Per nursing anesthesia protocol, see their notes PROCEDURE: After discussion of the potential risks and benefits of colonoscopy, the informed consent was obtained, from patient or health care surrogate. The patient was then placed in the left lateral decubitus position where sedation was achieved as noted above. Rectal examination was followed by insertion of the colonoscope. The colonoscope was passed under direct visualization to the cecum. Advancement was facilitated by insertion/withdrawl techniques, abdominal pressure and patient positioning. Once the cecal pole was reached, slow withdrawal was performed with the findings as noted below. The patient tolerated the procedure well and without complication. QUALITY OF PREP: Excellent WITHDRAWL TIME: 6 minutes 29 seconds BIOPSIES: Anastomosis and distal terminal ileum PHOTOGRAPHS: Obtained FINDINGS: The musoca appeared normal in the following regions: rectum, sigmoid colon, descending colon, splenic flexure. The patient had had a right hemicolectomy with anastomosis noted in the distal transverse colon to the small bowel and an end to side anastomosis. Mechanical disadvantage made it difficult to intubate the terminal ileum appropriately. Were able to basically look into it and pass a biopsy forceps into the small bowel as well. There are appeared to be light appearance of Crohn's disease/shallow ulcerations noted in the distal terminal ileum, biopsied. The position of the anastomosis was noted to be in the distal transverse colon based on length of the scope involved and external pressure. We were not able to see transillumination. No polyp, mass or AVM was noted throughout the colon. No diverticulosis noted. There were a few shallow erosions noted in the distal transverse colon and these were biopsied as well. No gross evidence of stricturing. Intubation of the TI was achieved x 5 cm with normal appearence IMPRESSION: This patient has not been scoped 10 years, was previously diagnosed by Dr. Weldon by report and is now status post right hemicolectomy with some residual Crohn's disease noted in the small bowel status post biopsy. I do not see any gross evidence of a colitis present and we will go ahead and discontinue the antibiotics is only minimal changes occurred the patient's white blood cell count. I will put the patient on some low-dose Entocort EC at 3 mg per day to cover his Crohn's. Going discontinuing the Pentasa as this will be difficult for the patient to take on an ongoing basis, and probably is going to be of minimal help. RECOMMENDATIONS: High fiber diet Repeat colonosocopy in 2 years. Follow up by phone for biopsy results in 1-2 weeks by phone Entocort EC 3 mg per day. Observe on a low residual diet for one more day, although the patient is very anxious to leave the hospital we can certainly discharge him today if he feels ready. Miguel Corley MD COPY TO: Kris Wheat M.D. Anesthesia: MAC Surgeon / Physician: Miguel Corley Estimated blood loss: minimal Specimens: other (transverse anastomosis with small bowel, terminal ileum in a patient with Crohn's disease) Condition: stable Disposition: post procedure unit ([facility]) Results - Labs CBC & BMP: 05/30/16 05:44 05/30/16 05:44 Discharge Plan - Discharge Medications No Action Zolpidem Tartrate [Zolpidem Tartrate] 5 mg PO BEDTIME PRN PRN Reason: Insomnia Methadone HCl [Methadone HCl] 50 mg PO DAILY Gabapentin [Gabapentin] 800 mg PO QID Butalb/Acetaminophen/Caffeine [Qxssst-Mmknzrmc-Jbrn 50-325-40] 1 tablet PO Q4 -6H PRN PRN Reason: Headache - Follow Up or Referral - Forms/Instructions
--- NOTE | 2016-05-30 11:50 | Gastrointestinal Progress Note ---
Assessment and Plan (1) Crohns disease Status: Acute Assessment and plan: This is a patient who was diagnosed initially in 1995 and this had multiple episodes of Crohn's flares over the years with chronic adenopathy noted throughout the colon and small bowel. I strongly suspect that he probably has upper and lower GI disease with his Crohn's. He is on no medications at this point. The most effective medication would likely be Entocort but will try him on Pentasa as well as treating underlying infections with a combination of Cipro and Flagyl. His stools are pending to look for evidence of infectious colitis/enteritis. We may tach on a colonoscopy during the terminal face of his hospitalization here. Agree with checking the CBC daily. 05/29/16--Patient is still having some tenderness in the right lower quadrant. He would like to leave the hospital but earlier and so we will push up the colonoscopy took tomorrow and he can bowel prep adequately tonight. CBC repeat pending. Examined his colon to see if this is truly a Crohn's flare versus infectious colitis, we may put him on some Entocort if this does appear to be consistent with Crohn's as opposed to the Pentasa being use presently. 05/30/16-- This patient has not been scoped 10 years, was previously diagnosed by Dr. Weldon by report and is now status post right hemicolectomy with some residual Crohn's disease noted in the small bowel status post biopsy. I do not see any gross evidence of a colitis present and we will go ahead and discontinue the antibiotics-- there is only a minimal change in the patient's white blood cell count. I will put the patient on some low-dose Entocort EC at 3 mg per day to cover his Crohn's. Going to discontinue the Pentasa as this will be difficult for the patient to take on an ongoing basis, and probably is going to be of minimal help. Current Visit: Yes (2) Hematochezia Status: Acute Assessment and plan: The patient is having some rectal bleeding of unclear etiology this may be the Crohn's disease or hemorrhoidal bleeding with his mild diarrhea. Colonoscopy to follow this admission. Clear liquid diet for the present time. We may add on the colonoscopy for Monday05/31/16. 05/29/16-- we will be rechecking the patient's rectum tomorrow during colonoscopy to see if we can find a bleeding source. He's been on clear liquids and should be obtained to bowel prep tonight adequately to see the small bowel. Provided the examination of the colon looks all right he may be able to be fed and then discharge tomorrow post-colonoscopy. 05/30/16--the patients rectum did demonstrate some moderate internal hemorrhoids. This may be the source the rectal bleeding, I do not see any gross evidence of ischemic colitis cancer or even severe Crohn's. There is some inflammation of the terminal ileum and the anastomosis but it is minimal. We'll keep the patient off of Pentasa as well as antibiotics and put him on a low-dose of Entocort EC 3 mg per day. If he tolerates his low residual diet he should be able to be discharged to follow up with me in the future. Will need another colonoscopy in 2 years. Current Visit: Yes (3) Abnormal CT scan, gastrointestinal tract Status: Acute Assessment and plan: Patient has enlarged lymph nodes throughout his abdomen. We will look for evidence of classic Crohn's disease on colonoscopy to follow later this admission as mentioned above. We'll obtain a sedimentation rate as well to look for the overall activity of the Crohn's disease here in the short-term. Risks of colonoscopy include but are not limited to: Bleeding, infection, perforation, cardiac and pulmonary compromise. 05/29/16-- Waiting on results of the colonoscopy tomorrow. 05/30/16 No gross evidence of a cause for patient's adenopathy, other than the mild Crohn's disease visualized. Current Visit: Yes Gastroenterology - PN: Subj Interval history: Patient tolerated the procedure well and the prep well. Patient does have some moderate size internal hemorrhoids possibly a source for the bleeding. Crohn's disease is fairly inactive. No gross evidence of colitis. Exam (Progress Note) - Constitutional Vitals: Period Temp Pulse Resp BP Sys/[place] Pulse Ox Last 24 Hr 97.2 F-98.7 F 62-76 16-20 92-141/61-112 94-100 General appearance: no acute distress - Head Head exam: Present: normocephalic, atraumatic - Eye Eye exam: Present: EOMI - Respiratory Respiratory exam: Present: clear to auscultation bilaterally. Absent: rales, rhonchi, wheezes - Cardiovascular Cardiovascular exam: Present: regular rate and rhythm - GI/Abdominal GI/Abdominal exam: Present: normal bowel sounds, tenderness, soft. Absent: distended, guarding - Extremities Exam Extremities exam: Present: normal inspection - Neurological Exam Neurological exam: Present: alert, oriented X3 - Psychiatric Psychiatric exam: Present: normal affect, normal mood - Skin Skin exam: Present: warm Results - Labs CBC & BMP: 05/30/16 05:44 05/30/16 05:44 Specialty Discharge - Follow Up or Referrals - Discharge Medications No Action Zolpidem Tartrate [Zolpidem Tartrate] 5 mg PO BEDTIME PRN PRN Reason: Insomnia Methadone HCl [Methadone HCl] 50 mg PO DAILY Gabapentin [Gabapentin] 800 mg PO QID Butalb/Acetaminophen/Caffeine [Nbssch-Zfdvuvyc-Rvtb 50-325-40] 1 tablet PO Q4 -6H PRN PRN Reason: Headache
[2016-05-30] MEDS: GABAPENTIN 400 MG CAPSULE PO SCH ×4 (12:10→20:52)
[2016-05-30] MEDS: MULTIVITAMIN INJ 10 ML in SODIUM CHLORIDE 0.45% 1,000 ML IV SCH (12:11)
[2016-05-30] MEDS: SODIUM CHLORIDE 0.45% 1,000 ML IV SCH ×3 (12:14→23:18)
[2016-05-30] MEDS: METHADONE 10 MG TABLET PO SCH (12:39)
[2016-05-30] MEDS: ONDANSETRON 4 MG/2 ML VIAL IV PRN (20:51)
[2016-05-30] MEDS: ZALEPLON 5 MG CAPSULE PO PRN (20:52)
[2016-05-31] MEDS: MORPHINE 2 MG/1 ML SYRINGE IV PRN ×2 (01:18→12:25)
[2016-05-31 05:38] LABS: Basophils % 0.5 % (0.0-0.8); Eosinophils # 0.7 10*3/uL (0.0-0.87); Eosinophils % 9.8 % (0.00-10.9); Hematocrit 31.4 VOL% (42.0-52.0); Hemoglobin 9.8 GM/DL (14.0-18.0); Immature Granulocytes % 0.4 %; Immature Granulocytes Absolute 0.03 #; Lymphocytes # 2.1 10*3/uL (1.4-4.0); Lymphocytes % 27.9 % (21.2-54.2); Mean Corpuscular HGB Conc 31.2 GM/DL (32-36); Mean Corpuscular Hemoglobin 26 PG (27-34); Mean Corpuscular Volume 84.2 FL (87-102); Mean Platelet Volume 9.2 FL (9.6-12.0); Monocytes # 0.3 10*3/uL (0.11-0.8); Monocytes % 3.6 % (1.7-12.7); Neutrophils # 4.3 10*3/uL (1.4-7.4); Neutrophils % 57.8 % (38.7-73.9); Platelet Count 296 10*3/uL (130-400); Red Blood Count 3.73 10*6/uL (3.8-5.5); Red Cell Distribution Width 16.1 % (9.3-17.3); White Blood Count 7.4 10*3/uL (4.5-13.71)
[2016-05-31] MEDS: SODIUM CHLORIDE 0.45% 1,000 ML IV SCH ×2 (06:09→06:15)
[2016-05-31] MEDS: GABAPENTIN 400 MG CAPSULE PO SCH (08:24)
[2016-05-31] MEDS: THIAMINE 200 MG/2 ML VIAL IV SCH (08:25)
[2016-05-31] MEDS: METHADONE 10 MG TABLET PO SCH (08:25)
--- NOTE | 2016-05-31 08:40 | Discharge Summary ---
Hospital Course - Hospital Course Hospital Course: Mr. Owens was hospitalized with abdominal pain. He was seen in consultation by GI. He underwent colonoscopy, which was his first colonoscopy in more than ten years, showing no active Crohn's disease. His medications were modified by GI. He felt much better by the time of discharge. - Time spent with patient Time with patient DS: Less than 30 minutes Diagnosis - Discharge Diagnosis (1) Crohns disease Status: Acute Specialty Discharge - Follow Up or Referrals - Discharge Medications No Action Zolpidem Tartrate [Zolpidem Tartrate] 5 mg PO BEDTIME PRN PRN Reason: Insomnia Methadone HCl [Methadone HCl] 50 mg PO DAILY Gabapentin [Gabapentin] 800 mg PO QID Butalb/Acetaminophen/Caffeine [Tztdmn-Xqcplgmd-Uwsw 50-325-40] 1 tablet PO Q4 -6H PRN PRN Reason: Headache Discharge Plan - Discharge Data Condition at Discharge: Stable Discharge Diet: advance to your usual diet Activity: resume usual activities as tolerated Hygiene: no restrictions - Discharge Medications New Budesonide Cap [Entocort EC] 3 mg PO DAILY #30 capsule Gabapentin Cap/Tab [Neurontin Cap/Tab] 800 mg PO QID #120 capsule Methadone 50 mg PO DAILY tablet Continue Methadone HCl 50 mg PO DAILY Gabapentin 800 mg PO QID Butalb/Acetaminophen/Caffeine [Mgiqcs-Wfhdfneo-Vktb 50-325-40] 1 tablet PO Q4 -6H PRN PRN Reason: Headache Discontinued Zolpidem Tartrate [Zolpidem Tartrate] 5 mg PO BEDTIME PRN PRN Reason: Insomnia - Follow Up or Referral - Forms/Instructions Exam - Constitutional Vitals: Period Temp Pulse Resp BP Sys/[place] Pulse Ox Last 24 Hr 97.0 F-98.9 F 58-86 16-63 101-141/63-112 94-100 General appearance: no acute distress - Head Head exam: Present: normal inspection - Neck Neck exam: Present: normal inspection - Respiratory Respiratory exam: Present: clear to auscultation bilaterally - Cardiovascular Cardiovascular exam: Present: regular rate and rhythm - GI/Abdominal GI/Abdominal exam: Present: normal bowel sounds, soft, other (nontender) - Extremities Exam Extremities exam: Present: normal inspection - Skin Skin exam: Present: normal color Discharge Results Procedures and tests throughout hospitalization: Pending Orders 06/01/16 04:00 CBC [Comp Blood Count Auto Diff] IN AM Labs on day of discharge: Labs from last 24 hours 05/31/16 05:17 WBC 7.4 RBC 3.73 L Hgb 9.8 L Hct 31.4 L MCV 84.2 L MCH 26 L MCHC 31.2 L RDW 16.1 Plt Count 296 MPV 9.2 L Neut % (Auto) 57.8 Lymph % (Auto) 27.9 [place] % (Auto) 3.6 Eos % (Auto) 9.8 Baso % (Auto) 0.5 Neut # (Auto) 4.3 Lymph # (Auto) 2.1 [place] # (Auto) 0.3 Eos # (Auto) 0.7 Baso # (Auto) 0.0 Immature Gran % 0.4 Nucleated RBC % 0.0 Immature Gran # 0.03 Nucleated RBCs # 0.00 DS: Provider Date of admission: 05/29/16 09:39 Primary care physician: . No PCP Attending physician on admission: Palmira Hare Discharging clinician: Kris Wheat Expected date of discharge: 05/31/16
[2016-05-31] MEDS ORDERED: BUDESONIDE 3 MG CAPSULE PO SCH (09:00)
[2016-05-31] MEDS: MULTIVITAMIN INJ 10 ML in SODIUM CHLORIDE 0.45% 1,000 ML IV SCH (09:00)
[2016-05-31 11:37] VITALS: BP 116/67
[2016-05-31] MEDS: ONDANSETRON 4 MG/2 ML VIAL IV PRN (12:27)
[2016-05-31] MEDS ORDERED: INFLUENZA VIRUS VACCINE 0.5 ML SYRINGE IM ONE (13:53)
--- NOTE | 2016-06-01 11:18 | Pathology Report from [facility] ---
ACCESSION # : [id number] PATIENT NAME : Doni Nuñez ORDERING DR : Miguel Corley MD CLINICAL HX: Crohn's rectal bleeding POST-OP DX: #1 Questionable Crohn's #2 Biopsy SPECIMEN INFO: #1 Small Bowel-Terminal Ileum Biopsy #2 Biopsy of anastomosis GROSS DESCRIPTION: The specimen is received in two parts labeled "DONI NUÑEZ ". Part #1 consists a 0.4 x 0.3 cm aggregate of askew mucosal tissue, submitted in cassette #1.Part #2 consists of a 0.6 x 0.4 cm aggregate of askew mucosal tissue, submitted in cassette #2. DIAGNOSIS FOR DONI NUÑEZ: #1 TERMINAL ILEAL BIOPSIES: Terminal ileal mucosa with chronic inflammation and focal acute inflammation/ ulceration c /w active Crohn's disease.#2 COLON AT ANASTOMOSIS, BIOPSY: Ulcer debris with colon mucosa showing moderate chronic inflammation and focal acute inflammation c/w active Crohn's disease. SERVICE DATE: 05/31/2016 REPORT DATE: 06/01/2016 PATHOLOGIST: Fly Mcdonald
== END 2016-05-31 15:15 | disposition home or self-care (01) | DRG 386 ==
LOC: N.EDINP 07:39 → N.ED 07:39 → SUATTDRO 10:55 → N.2E 11:25
PROVIDERS: ADMIT Hospitalist
PROC: COLONBX (2016-05-30 10:05)

== ENCOUNTER 2017-12-27 06:19 | Inpatient (IN) ==
[2017-12-27] MEDS ORDERED: ceFAZolin 1,000 MG in SYRINGE 1 EACH IV ONE (06:30)
[2017-12-27] MEDS: SODIUM CHLORIDE 0.45% 1,000 ML IV SCH (06:45)
[2017-12-27 07:03] LABS: Basophils # 0.1 10*3/uL (0.0-0.2); Eosinophils # 0.7 10*3/uL (0.0-0.87); Eosinophils % 6.6 % (0.00-10.9); Immature Granulocytes % 0.5 %; Immature Granulocytes Absolute 0.05 #; Lymphocytes # 2.9 10*3/uL (1.4-4.0); Lymphocytes % 26.4 % (21.2-54.2); Mean Corpuscular HGB Conc 31.3 GM/DL (32-36); Mean Corpuscular Hemoglobin 27 PG (27-34); Mean Corpuscular Volume 86.8 FL (87-102); Mean Platelet Volume 9.2 FL (9.6-12.0); Monocytes # 0.4 10*3/uL (0.11-0.8); Neutrophils # 6.7 10*3/uL (1.4-7.4); Neutrophils % 61.5 % (38.7-73.9); Platelet Count 378 T/CUMM (130-400); Red Blood Count 5.53 MC/CUMM (3.8-5.5); Red Cell Distribution Width 15.8 % (9.3-17.3); White Blood Count 10.8 T/CUMM (4-12)
[2017-12-27 07:12] LABS: INR 0.9; PT Patient Result 9.7 SECS; Partial Thromboplastin Time 27.1 SECS (0-40)
[2017-12-27] MEDS ORDERED: MIDAZOLAM 2 MG/2 ML VIAL IV ONE (07:17)
[2017-12-27] MEDS ORDERED: ONDANSETRON 4 MG/2 ML VIAL IV ONE (07:17)
[2017-12-27] MEDS ORDERED: DIAZEPAM 5 MG TABLET PO ONE (07:17)
[2017-12-27] MEDS ORDERED: HEPARIN 5,000 UNIT/1 ML VIAL IV ONE (07:17)
[2017-12-27] MEDS ORDERED: fentaNYL 100 MCG/2 ML VIAL IV ONE (07:17)
[2017-12-27] MEDS ORDERED: ceFAZolin 1,000 MG VIAL ONE (07:20)
[2017-12-27 07:32] LABS: Alanine Aminotransferase 19 U/L (16-61); Albumin 3.7 G/DL (3.4-5.0); Alkaline Phosphatase 112 U/L (45-117); Aspartate Amino Transferase 15 U/L (0-37); Bilirubin,Total < 0.39 MG/DL (0.2-1.0); Blood Urea Nitrogen 12 MG/DL (7-18); Glucose 87 MG/DL (74-106); Osmolality,Calculated 275.5 MOS/KG (273-304); Potassium 4.2 MMOL/L (3.5-5.1); Sodium 139 MMOL/L (136-145); Total Protein 7.6 G/DL (6.4-8.3)
[2017-12-27] MEDS ORDERED: DIAZEPAM 5 MG TABLET ONE (08:23)
[2017-12-27] MEDS ORDERED: HEPARIN 5,000 UNIT/1 ML VIAL ONE (08:23)
[2017-12-27] MEDS ORDERED: fentaNYL 100 MCG/2 ML VIAL ONE (08:24)
[2017-12-27] MEDS ORDERED: HEPARIN/NACL 0.9% 2 UNITS/ML 2,000 ML IV ONE (08:24)
[2017-12-27] MEDS ORDERED: MIDAZOLAM 2 MG/2 ML VIAL ONE ×2 (08:25→09:21)
[2017-12-27] MEDS ORDERED: HYDROmorphone 2 MG/1 ML VIAL ONE (09:21)
[2017-12-27] MEDS ORDERED: ALTEPLASE 2 MG VIAL ONE (10:05)
[2017-12-27] MEDS ORDERED: HEPARIN DRIP 25,000 UNITS/500 ML PREMIX IV ONE ×2 (10:11→10:30)
[2017-12-27] MEDS: ALTEPLASE 24 MG in SODIUM CHLORIDE 0.9% 480 ML IV SCH (10:25)
[2017-12-27 12:59] LABS: PT Patient Result 10.1 SECS; Partial Thromboplastin Time 35.9 SECS (0-40)
[2017-12-27] MEDS ORDERED: HEPARIN DRIP 25,000 UNITS/500 ML PREMIX IV SCH (13:30)
[2017-12-27] MEDS: GABAPENTIN 400 MG CAPSULE PO SCH ×3 (13:39→20:18)
[2017-12-27] MEDS: oxyCODONE/ACETAMINOPHEN 5-325 MG TABLET PO SCH ×2 (14:37→20:19)
[2017-12-27] MEDS ORDERED: HYDROmorphone 2 MG/1 ML VIAL IV PRN (15:03)
[2017-12-27 17:13] LABS: PT Patient Result 10.1 SECS
[2017-12-27] MEDS ORDERED: KETOROLAC 30 MG/1 ML VIAL IV PRN ×2 (18:27→19:31)
[2017-12-27] MEDS: HYDROmorphone 2 MG/1 ML VIAL IV PRN (20:19)
[2017-12-27] MEDS: MORPHINE ER 30 MG TABLET PO SCH (20:19)
[2017-12-28] MEDS: HYDROmorphone 2 MG/1 ML VIAL IV PRN ×3 (00:11→08:15)
[2017-12-28 00:53] LABS: Partial Thromboplastin Time 35.4 SECS (0-40)
[2017-12-28 04:31] LABS: INR 1.2; PT Patient Result 12.7 SECS
[2017-12-28] MEDS ORDERED: SODIUM CHLORIDE 0.9% 1,000 ML IV SCH (07:30)
[2017-12-28] MEDS: oxyCODONE/ACETAMINOPHEN 5-325 MG TABLET PO SCH ×2 (08:13→15:34)
[2017-12-28] MEDS: MORPHINE ER 30 MG TABLET PO SCH (08:14)
[2017-12-28] MEDS ORDERED: HEPARIN/NACL 0.9% 2 UNITS/ML 2,000 ML IV ONE (08:36)
[2017-12-28] MEDS ORDERED: MIDAZOLAM 2 MG/2 ML VIAL ONE (08:52)
[2017-12-28] MEDS: MIDAZOLAM 2 MG/2 ML VIAL IV ONE ×2 (08:55→09:55)
[2017-12-28] MEDS ORDERED: ONDANSETRON 4 MG/2 ML VIAL ONE (10:26)
[2017-12-28] MEDS ORDERED: ONDANSETRON 4 MG/2 ML VIAL IV PRN (10:31)
[2017-12-28] MEDS: GABAPENTIN 400 MG CAPSULE PO SCH ×3 (10:38→17:27)
[2017-12-28] MEDS: ALTEPLASE 24 MG in SODIUM CHLORIDE 0.9% 480 ML IV SCH (10:54)
[2017-12-28] MEDS: SODIUM CHLORIDE 0.45% 1,000 ML IV SCH (11:14)
[2017-12-28 11:37] LABS: Apearance,Urine CLEAR (Clear); Bilirubin,Urine Negative (Negative); Blood, Urine Small mg/dL (Negative); Glucose,Urine (UA) Negative (Negative); Ketones,Urine Negative (Negative); Nitrite,Urine Negative (Negative); Protein,Urine Negative; RBC,Urine 7 /HPF (0-4); Squamous Epithelial Cell,Urine Occasional /HPF (0-10); Urine Color Yellow (Yellow); Urine Specific Gravity > 1.060 (1.001-1.035); Urine Urobilinogen < 2.0 EU/DL (0.2-1.0); WBC,Urine 1 /HPF (0-6)
[2017-12-28 18:13] VITALS: BP 146/90
== END 2017-12-28 18:55 | disposition home or self-care (01) | DRG 254 ==
LOC: N.RAD 06:19 → N.SDSINP 06:25 → N.ICU 10:40
PROVIDERS: ADMIT Surgery; ATTEND Surgery
PROC: IRORORE (2017-12-28 08:30)

== ENCOUNTER 2019-03-21 13:05 | Inpatient (IN) ==
[2019-03-21 14:04] LABS: Basophils # 0.1 10*3/uL (0.0-0.2); Basophils % 0.9 % (0.0-0.8); Eosinophils # 0.5 10*3/uL (0.0-0.87); Eosinophils % 4.6 % (0.00-10.9); Hematocrit 41.5 VOL% (42.0-52.0); Hemoglobin 12.5 GM/DL (14.0-18.0); Immature Granulocytes % 0.3 %; Immature Granulocytes Absolute 0.03 #; Lymphocytes # 1.8 10*3/uL (1.4-4.0); Lymphocytes % 15.9 % (21.2-54.2); Mean Corpuscular HGB Conc 30.1 GM/DL (32-36); Mean Corpuscular Volume 75.6 FL (87-102); Mean Platelet Volume 9.3 FL (9.6-12.0); Monocytes % 4.3 % (1.7-12.7); Platelet Count 564 T/CUMM (130-400); Red Blood Count 5.49 MC/CUMM (3.8-5.5); Red Cell Distribution Width 17.2 % (9.3-17.3); White Blood Count 11.3 T/CUMM (4-12)
[2019-03-21 14:22] LABS: Alanine Aminotransferase 15 U/L (16-61); Albumin 3.4 G/DL (3.4-5.0); Alkaline Phosphatase 134 U/L (45-117); Aspartate Amino Transferase 11 U/L (0-37); Bilirubin,Total < 0.39 MG/DL (0.2-1.0); Blood Urea Nitrogen 9 MG/DL (7-18); Calcium 9.5 MG/DL (8.5-10.1); Estimated Glom Filtration Rate 134 ML/MIN; Glucose 102 MG/DL (74-106); Osmolality,Calculated 275.5 MOS/KG (273-304); Total Protein 8.1 G/DL (6.4-8.3)
[2019-03-21] MEDS ORDERED: cefTRIAXone 2,000 MG in SODIUM CHLORIDE 0.9% 100 ML IV ONE (14:54)
[2019-03-21] MEDS ORDERED: metroNIDAZOLE INJ 500 MG in PREMIX 1 EACH IV STA (14:54)
[2019-03-21] MEDS ORDERED: SODIUM CHLORIDE 0.9% 1,000 ML IV STA (14:56)
[2019-03-21] MEDS ORDERED: cefTRIAXone 1,000 MG VIAL ONE (15:23)
[2019-03-21] MEDS ORDERED: ONDANSETRON 4 MG/2 ML VIAL IV STA (15:28)
[2019-03-21] MEDS ORDERED: fentaNYL 100 MCG/2 ML VIAL IV STA (15:28)
[2019-03-21 15:57] LABS: Apearance,Urine CLEAR (Clear); Bilirubin,Urine Negative (Negative); Blood, Urine Moderate mg/dL (Negative); Glucose,Urine (UA) Negative (Negative); Ketones,Urine Negative (Negative); Mucus,Urine Occasional /LPF (Occasional); Nitrite,Urine Negative (Negative); Protein,Urine Negative; RBC,Urine 27 /HPF (0-4); Squamous Epithelial Cell,Urine Occasional /HPF (0-10); Urine Color Yellow (Yellow); Urine Specific Gravity > 1.060 (1.001-1.035); Urine Urobilinogen < 2.0 EU/DL (0.2-1.0); WBC,Urine 1 /HPF (0-6)
[2019-03-21 15:58] LABS: Barbiturates Screen,Urine Negative (Negative); Benzodiazepines Screen,Urine Negative (Negative); Cannabinoid Screen,Urine Negative (Negative); Opiate Screen,Urine Positive (Negative); Phencyclidine Screen,Urine Negative (Negative)
[2019-03-21] MEDS ORDERED: KETOROLAC 15 MG/1 ML VIAL IV PRN (16:07)
[2019-03-21] MEDS ORDERED: ONDANSETRON 4 MG/2 ML VIAL IV PRN (16:09)
[2019-03-21] MEDS ORDERED: SODIUM CHLORIDE 0.9% 1,000 ML IV SCH (17:30)
[2019-03-21] MEDS: HYDROmorphone 2 MG/1 ML VIAL IV PRN ×2 (18:25→22:17)
[2019-03-21] MEDS: PIPERACILLIN/TAZOBACTAM 3,375 MG in SODIUM CHLORIDE 0.9% 100 ML IV SCH (18:29)
[2019-03-21] MEDS: LACTATED RINGERS 1,000 ML IV SCH (18:44)
[2019-03-21] MEDS: metroNIDAZOLE INJ 500 MG in PREMIX 1 EACH IV SCH (22:19)
[2019-03-22] MEDS: PIPERACILLIN/TAZOBACTAM 3,375 MG in SODIUM CHLORIDE 0.9% 100 ML IV SCH ×4 (00:12→23:57)
[2019-03-22] MEDS: HYDROmorphone 2 MG/1 ML VIAL IV PRN ×8 (01:19→21:58)
[2019-03-22] MEDS: LACTATED RINGERS 1,000 ML IV SCH ×5 (03:17→23:56)
[2019-03-22 05:44] LABS: Hematocrit 33.6 VOL% (42.0-52.0); Hemoglobin 9.9 GM/DL (14.0-18.0); Mean Corpuscular Volume 77.4 FL (87-102); Red Blood Count 4.34 MC/CUMM (3.8-5.5); White Blood Count 7.7 T/CUMM (4-12)
[2019-03-22 05:45] LABS: Basophils # 0.1 10*3/uL (0.0-0.2); Basophils % 1.3 % (0.0-0.8); Eosinophils # 0.5 10*3/uL (0.0-0.87); Eosinophils % 6.3 % (0.00-10.9); Immature Granulocytes % 0.4 %; Immature Granulocytes Absolute 0.03 #; Lymphocytes # 1.9 10*3/uL (1.4-4.0); Lymphocytes % 24.2 % (21.2-54.2); Mean Corpuscular HGB Conc 29.5 GM/DL (32-36); Mean Platelet Volume 9.2 FL (9.6-12.0); Monocytes % 5.4 % (1.7-12.7); Neutrophils % 62.4 % (38.7-73.9); Platelet Count 424 T/CUMM (130-400); Red Cell Distribution Width 17.1 % (9.3-17.3)
[2019-03-22] MEDS: metroNIDAZOLE INJ 500 MG in PREMIX 1 EACH IV SCH (05:53)
[2019-03-22 06:09] LABS: Albumin 2.6 G/DL (3.4-5.0); Bilirubin,Total 0.5 MG/DL (0.2-1.0); Calcium 8.8 MG/DL (8.5-10.1); Total Protein 6.3 G/DL (6.4-8.3)
[2019-03-22] MEDS: PANTOPRAZOLE 40 MG TABLET PO SCH (08:56)
[2019-03-22] MEDS ORDERED: DIAZEPAM 5 MG TABLET PO ONE (10:52)
[2019-03-22] MEDS ORDERED: fentaNYL 100 MCG/2 ML VIAL IV ONE (10:52)
[2019-03-22] MEDS ORDERED: MIDAZOLAM 2 MG/2 ML VIAL IV ONE (10:52)
[2019-03-22] MEDS ORDERED: fentaNYL 100 MCG/2 ML VIAL ONE (13:54)
[2019-03-22] MEDS ORDERED: MIDAZOLAM 2 MG/2 ML VIAL ONE (13:54)
[2019-03-22] MEDS: GABAPENTIN 400 MG CAPSULE PO SCH ×2 (16:46→20:59)
[2019-03-22] MEDS: ONDANSETRON 4 MG/2 ML VIAL IV PRN ×2 (16:47→20:58)
[2019-03-22] MEDS: methylPREDNISolone SOD SUC 40 MG/1 ML VIAL IV SCH (18:13)
[2019-03-23] MEDS: HYDROmorphone 2 MG/1 ML VIAL IV PRN ×5 (02:36→21:33)
[2019-03-23 04:51] LABS: Basophils # 0.1 10*3/uL (0.0-0.2); Basophils % 0.7 % (0.0-0.8); Eosinophils # 0.4 10*3/uL (0.0-0.87); Eosinophils % 5.1 % (0.00-10.9); Hematocrit 34.5 VOL% (42.0-52.0); Hemoglobin 10.2 GM/DL (14.0-18.0); Immature Granulocytes % 0.4 %; Immature Granulocytes Absolute 0.03 #; Lymphocytes # 1.6 10*3/uL (1.4-4.0); Lymphocytes % 19.9 % (21.2-54.2); Mean Corpuscular HGB Conc 29.6 GM/DL (32-36); Mean Corpuscular Volume 76.2 FL (87-102); Mean Platelet Volume 9.2 FL (9.6-12.0); Monocytes % 4.5 % (1.7-12.7); Neutrophils % 69.4 % (38.7-73.9); Platelet Count 466 T/CUMM (130-400); Red Blood Count 4.53 MC/CUMM (3.8-5.5)
[2019-03-23] MEDS: methylPREDNISolone SOD SUC 40 MG/1 ML VIAL IV SCH ×2 (05:24→16:41)
[2019-03-23] MEDS: ONDANSETRON 4 MG/2 ML VIAL IV PRN ×2 (07:24→23:01)
[2019-03-23] MEDS: PANTOPRAZOLE 40 MG TABLET PO SCH (09:20)
[2019-03-23] MEDS: GABAPENTIN 400 MG CAPSULE PO SCH ×4 (09:20→21:36)
[2019-03-23] MEDS: PIPERACILLIN/TAZOBACTAM 3,375 MG in SODIUM CHLORIDE 0.9% 100 ML IV SCH ×2 (09:21→16:07)
[2019-03-23] MEDS: LACTATED RINGERS 1,000 ML IV SCH (15:00)
[2019-03-23] MEDS: oxyCODONE/ACETAMINOPHEN 5-325 MG TABLET PO PRN (16:08)
[2019-03-24] MEDS: PIPERACILLIN/TAZOBACTAM 3,375 MG in SODIUM CHLORIDE 0.9% 100 ML IV SCH ×4 (00:37→23:50)
[2019-03-24] MEDS: oxyCODONE/ACETAMINOPHEN 5-325 MG TABLET PO PRN ×4 (00:37→23:50)
[2019-03-24] MEDS: LACTATED RINGERS 1,000 ML IV SCH ×5 (01:25→23:52)
[2019-03-24] MEDS: methylPREDNISolone SOD SUC 40 MG/1 ML VIAL IV SCH ×2 (05:28→17:39)
[2019-03-24 05:57] LABS: Basophils % 0.2 % (0.0-0.8); Hemoglobin 10.3 GM/DL (14.0-18.0); Immature Granulocytes % 0.8 %; Lymphocytes # 1.3 10*3/uL (1.4-4.0); Mean Corpuscular HGB Conc 29.3 GM/DL (32-36); Mean Corpuscular Volume 75.6 FL (87-102); Mean Platelet Volume 9.3 FL (9.6-12.0); Monocytes % 2.9 % (1.7-12.7); Neutrophils % 85.1 % (38.7-73.9); Platelet Count 533 T/CUMM (130-400); Red Blood Count 4.64 MC/CUMM (3.8-5.5); Red Cell Distribution Width 17.1 % (9.3-17.3)
[2019-03-24 06:22] LABS: Hematocrit 34.6 VOL% (42.0-52.0)
[2019-03-24] MEDS: HYDROmorphone 2 MG/1 ML VIAL IV PRN ×3 (06:49→20:35)
[2019-03-24] MEDS: PANTOPRAZOLE 40 MG TABLET PO SCH (09:15)
[2019-03-24] MEDS: GABAPENTIN 400 MG CAPSULE PO SCH ×4 (09:15→20:35)
[2019-03-24] MEDS: ONDANSETRON 4 MG/2 ML VIAL IV PRN (09:15)
[2019-03-25] MEDS: ONDANSETRON 4 MG/2 ML VIAL IV PRN (00:05)
[2019-03-25] MEDS: HYDROmorphone 2 MG/1 ML VIAL IV PRN ×4 (03:22→22:03)
[2019-03-25 05:05] LABS: Basophils % 0.1 % (0.0-0.8); Hemoglobin 10.2 GM/DL (14.0-18.0); Immature Granulocytes % 1.5 %; Lymphocytes # 1.6 10*3/uL (1.4-4.0); Lymphocytes % 11.8 % (21.2-54.2); Mean Corpuscular Volume 76.1 FL (87-102); Mean Platelet Volume 9.9 FL (9.6-12.0); Monocytes % 2.1 % (1.7-12.7); Neutrophils % 84.5 % (38.7-73.9); Platelet Count 560 T/CUMM (130-400); Red Blood Count 4.47 MC/CUMM (3.8-5.5); Red Cell Distribution Width 17.4 % (9.3-17.3); White Blood Count 13.4 T/CUMM (4-12)
[2019-03-25] MEDS: methylPREDNISolone SOD SUC 40 MG/1 ML VIAL IV SCH ×2 (05:08→18:10)
[2019-03-25 05:30] LABS: Calcium 8.9 MG/DL (8.5-10.1); Osmolality,Calculated 280.3 MOS/KG (273-304)
[2019-03-25] MEDS: oxyCODONE/ACETAMINOPHEN 5-325 MG TABLET PO PRN ×2 (06:39→13:56)
[2019-03-25] MEDS: PIPERACILLIN/TAZOBACTAM 3,375 MG in SODIUM CHLORIDE 0.9% 100 ML IV SCH ×2 (09:52→18:08)
[2019-03-25] MEDS: GABAPENTIN 400 MG CAPSULE PO SCH ×4 (11:03→21:58)
[2019-03-25] MEDS: PANTOPRAZOLE 40 MG TABLET PO SCH (11:03)
[2019-03-25] MEDS: LACTATED RINGERS 1,000 ML IV SCH (13:57)
[2019-03-26] MEDS: oxyCODONE/ACETAMINOPHEN 5-325 MG TABLET PO PRN (01:35)
[2019-03-26] MEDS: PIPERACILLIN/TAZOBACTAM 3,375 MG in SODIUM CHLORIDE 0.9% 100 ML IV SCH ×2 (01:36→09:03)
[2019-03-26] MEDS: LACTATED RINGERS 1,000 ML IV SCH ×2 (01:37→04:45)
[2019-03-26] MEDS: HYDROmorphone 2 MG/1 ML VIAL IV PRN ×3 (04:45→13:52)
[2019-03-26 05:19] LABS: Calcium 8.4 MG/DL (8.5-10.1); Osmolality,Calculated 274.8 MOS/KG (273-304)
[2019-03-26 05:26] LABS: Basophils % 0.1 % (0.0-0.8); Hematocrit 37.7 VOL% (42.0-52.0); Hemoglobin 11.3 GM/DL (14.0-18.0); Immature Granulocytes % 1.8 %; Immature Granulocytes Absolute 0.17 #; Lymphocytes # 1.7 10*3/uL (1.4-4.0); Lymphocytes % 17.8 % (21.2-54.2); Mean Corpuscular Volume 76.6 FL (87-102); Mean Platelet Volume 9.5 FL (9.6-12.0); Monocytes % 3.3 % (1.7-12.7); Platelet Count 537 T/CUMM (130-400); Red Blood Count 4.92 MC/CUMM (3.8-5.5); Red Cell Distribution Width 17.6 % (9.3-17.3); White Blood Count 9.5 T/CUMM (4-12)
[2019-03-26] MEDS: methylPREDNISolone SOD SUC 40 MG/1 ML VIAL IV SCH (05:54)
[2019-03-26] MEDS: GABAPENTIN 400 MG CAPSULE PO SCH ×2 (09:03→13:53)
[2019-03-26] MEDS: PANTOPRAZOLE 40 MG TABLET PO SCH (09:04)
[2019-03-26 12:10] VITALS: BP 116/75
== END 2019-03-26 15:27 | disposition hospice, home (50) | DRG 387 ==
LOC: N.ED 13:05 → SUATTDRO 17:06 → N.EDINP 17:06 → N.5E 18:06 → N.TELEN 03-25 08:02
PROVIDERS: ADMIT Family Medicine; ATTEND Internal Medicine

== ENCOUNTER 2020-11-27 18:20 | Inpatient (IN) ==
[2020-11-27] MEDS ORDERED: MORPHINE 4 MG/1 ML VIAL IV STA ×2 (21:31→23:53)
[2020-11-27] MEDS ORDERED: MORPHINE 4 MG/1 ML VIAL ONE (21:34)
[2020-11-27 21:59] LABS: Basophils # 0.1 10*3/uL (0.0-0.2); Basophils % 0.9 % (0.0-0.8); Eosinophils # 0.3 10*3/uL (0.0-0.87); Eosinophils % 2.7 % (0.00-10.9); Hematocrit 43.8 VOL% (42.0-52.0); Hemoglobin 13.3 GM/DL (14.0-18.0); Immature Granulocytes % 0.3 %; Immature Granulocytes Absolute 0.03 #; Lymphocytes # 1.7 10*3/uL (1.4-4.0); Lymphocytes % 14.4 % (21.2-54.2); Mean Corpuscular HGB Conc 30.4 GM/DL (32-36); Mean Corpuscular Volume 89.9 FL (87-102); Mean Platelet Volume 9.5 FL (9.6-12.0); Monocytes % 4.7 % (1.7-12.7); Platelet Count 291 T/CUMM (130-400); Red Blood Count 4.87 MC/CUMM (3.8-5.5); Red Cell Distribution Width 16.6 % (9.3-17.3); White Blood Count 11.7 T/CUMM (4-12)
[2020-11-27 22:16] LABS: Albumin 3.6 G/DL (3.4-5.0); Bilirubin,Total 0.5 MG/DL (0.2-1.0); Potassium 4.4 MMOL/L (3.5-5.1); Total Protein 7.8 G/DL (6.4-8.2)
[2020-11-28] MEDS ORDERED: fentaNYL 100 MCG/2 ML VIAL IV STA (02:06)
[2020-11-28] MEDS ORDERED: fentaNYL 100 MCG/2 ML VIAL ONE ×2 (02:07→08:02)
[2020-11-28] MEDS ORDERED: MORPHINE 4 MG/1 ML VIAL IV PRN (04:25)
[2020-11-28] MEDS: DEXTROSE 5% NACL 0.45% 1,000 ML IV SCH ×3 (04:58→20:44)
[2020-11-28] MEDS: AMPICILLIN/SULBACTAM 1,500 MG in SODIUM CHLORIDE 0.9% 100 ML IV SCH ×3 (05:26→16:07)
[2020-11-28] MEDS: MORPHINE 4 MG/1 ML VIAL IV PRN ×3 (07:30→20:43)
[2020-11-28] MEDS ORDERED: SEVOFLURANE 1 UNIT/15 MINUTE INH ONE (08:02)
[2020-11-28] MEDS ORDERED: propofoL 200 MG/20 ML VIAL IV ONE ×4 (08:02→09:50)
[2020-11-28] MEDS ORDERED: MIDAZOLAM 2 MG/2 ML VIAL ONE ×2 (08:02→09:42)
[2020-11-28] MEDS ORDERED: LIDOCAINE 2% 5 ML VIAL ONE (08:02)
[2020-11-28] MEDS ORDERED: SODIUM CHLORIDE 0.9% 250 ML IV ONE (08:19)
[2020-11-28] MEDS ORDERED: LACTATED RINGERS 1,000 ML IV ONE (09:41)
[2020-11-28] MEDS: HYDROmorphone 2 MG/1 ML VIAL IV PRN ×4 (10:30→11:01)
[2020-11-28] MEDS ORDERED: HYDROmorphone 2 MG/1 ML VIAL ONE (10:30)
[2020-11-28] MEDS ORDERED: PROMETHAZINE INJ 25 MG in SODIUM CHLORIDE 0.9% 50 ML IV PRN (10:52)
[2020-11-28] MEDS ORDERED: PROMETHAZINE 25 MG/1 ML VIAL ONE (10:53)
[2020-11-28] MEDS: ENOXAPARIN 40 MG/0.4 ML SYRINGE SUBCUT SCH (11:39)
[2020-11-28] MEDS: PANTOPRAZOLE 40 MG VIAL IV SCH (11:39)
[2020-11-29] MEDS: AMPICILLIN/SULBACTAM 1,500 MG in SODIUM CHLORIDE 0.9% 100 ML IV SCH ×5 (00:23→22:36)
[2020-11-29] MEDS: MORPHINE 4 MG/1 ML VIAL IV PRN ×3 (03:11→08:39)
[2020-11-29 05:52] LABS: Basophils # 0.1 10*3/uL (0.0-0.2); Basophils % 1.2 % (0.0-0.8); Eosinophils # 0.3 10*3/uL (0.0-0.87); Eosinophils % 5.1 % (0.00-10.9); Hematocrit 42.1 VOL% (42.0-52.0); Hemoglobin 13.2 GM/DL (14.0-18.0); Immature Granulocytes % 0.3 %; Immature Granulocytes Absolute 0.02 #; Lymphocytes # 1.3 10*3/uL (1.4-4.0); Lymphocytes % 22.1 % (21.2-54.2); Mean Corpuscular HGB Conc 31.4 GM/DL (32-36); Mean Corpuscular Volume 85.7 FL (87-102); Mean Platelet Volume 9.7 FL (9.6-12.0); Monocytes % 7.2 % (1.7-12.7); Neutrophils % 64.1 % (38.7-73.9); Platelet Count 273 T/CUMM (130-400); Red Blood Count 4.91 MC/CUMM (3.8-5.5); Red Cell Distribution Width 16.5 % (9.3-17.3); White Blood Count 5.8 T/CUMM (4-12)
[2020-11-29] MEDS: DEXTROSE 5% NACL 0.45% 1,000 ML IV SCH ×3 (05:56→22:37)
[2020-11-29] MEDS: ENOXAPARIN 40 MG/0.4 ML SYRINGE SUBCUT SCH (06:14)
[2020-11-29 06:59] LABS: Albumin 3.2 G/DL (3.4-5.0); Bilirubin,Total 0.4 MG/DL (0.2-1.0); Calcium 9.5 MG/DL (8.5-10.1); Osmolality,Calculated 264.4 MOS/KG (273-304); Potassium 3.8 MMOL/L (3.5-5.1); Total Protein 7.4 G/DL (6.4-8.2)
[2020-11-29] MEDS: PANTOPRAZOLE 40 MG VIAL IV SCH (08:42)
[2020-11-29] MEDS: HYDROmorphone 2 MG/1 ML VIAL IV PRN ×7 (09:44→22:35)
[2020-11-29] MEDS ORDERED: HYDROmorphone 2 MG/1 ML VIAL IV ONE (15:59)
[2020-11-30] MEDS: HYDROmorphone 2 MG/1 ML VIAL IV PRN ×8 (01:02→22:34)
[2020-11-30] MEDS: DEXTROSE 5% NACL 0.45% 1,000 ML IV SCH ×3 (04:47→22:34)
[2020-11-30] MEDS: AMPICILLIN/SULBACTAM 1,500 MG in SODIUM CHLORIDE 0.9% 100 ML IV SCH ×4 (04:47→22:34)
[2020-11-30] MEDS: ENOXAPARIN 40 MG/0.4 ML SYRINGE SUBCUT SCH (07:14)
[2020-11-30] MEDS: PANTOPRAZOLE 40 MG VIAL IV SCH (11:15)
[2020-12-01] MEDS: HYDROmorphone 2 MG/1 ML VIAL IV PRN ×4 (01:20→11:00)
[2020-12-01] MEDS: AMPICILLIN/SULBACTAM 1,500 MG in SODIUM CHLORIDE 0.9% 100 ML IV SCH ×2 (04:40→11:00)
[2020-12-01] MEDS: DEXTROSE 5% NACL 0.45% 1,000 ML IV SCH (08:16)
[2020-12-01] MEDS: PANTOPRAZOLE 40 MG VIAL IV SCH (08:17)
[2020-12-01] MEDS: ENOXAPARIN 40 MG/0.4 ML SYRINGE SUBCUT SCH (08:17)
[2020-12-01 12:09] VITALS: BP 135/83
== END 2020-12-01 12:35 | disposition home or self-care (01) | DRG 346 ==
LOC: N.EDINP 18:20 → N.ED 18:20 → N.3E 11-28 04:10
PROVIDERS: ADMIT Surgery; ATTEND Surgery

== ENCOUNTER 2021-12-20 00:50 | Inpatient (IN) ==
[2021-12-20] MEDS ORDERED: MORPHINE 2 MG/1 ML SYRINGE IV STA (01:13)
[2021-12-20] MEDS ORDERED: METOCLOPRAMIDE 10 MG/2 ML VIAL IV STA (01:14)
[2021-12-20 01:39] LABS: Basophils # 0.1 10*3/uL (0.0-0.2); Basophils % 0.5 % (0.0-0.8); Eosinophils # 0.6 10*3/uL (0.0-0.87); Eosinophils % 5.8 % (0.00-10.9); Hematocrit 40.8 VOL% (42.0-52.0); Hemoglobin 13.1 GM/DL (14.0-18.0); Immature Granulocytes % 0.3 %; Immature Granulocytes Absolute 0.03 #; Lymphocytes # 2.3 10*3/uL (1.4-4.0); Lymphocytes % 23.2 % (21.2-54.2); Mean Corpuscular HGB Conc 32.1 GM/DL (32-36); Mean Platelet Volume 9.6 FL (9.6-12.0); Monocytes # 0.5 10*3/uL (0.11-0.8); Monocytes % 4.6 % (1.7-12.7); Neutrophils % 65.6 % (38.7-73.9); Platelet Count 333 T/CUMM (130-400); Red Blood Count 4.86 MC/CUMM (3.8-5.5); Red Cell Distribution Width 17.3 % (9.3-17.3); White Blood Count 9.7 T/CUMM (4-12)
[2021-12-20 01:56] LABS: Alanine Aminotransferase 14 U/L (16-61); Albumin 3.5 G/DL (3.4-5.0); Alkaline Phosphatase 128 U/L (45-117); Aspartate Amino Transferase 13 U/L (0-37); Bilirubin,Total < 0.39 MG/DL (0.20-1.00); Blood Urea Nitrogen 18 MG/DL (7-18); Calcium 9.4 MG/DL (8.5-10.1); Carbon Dioxide 24 MMOL/L (21-32); Chloride 108 MMOL/L (98-107); Glucose 100 MG/DL (74-106); Osmolality,Calculated 274.8 MOS/KG (273-304); Potassium 3.3 MMOL/L (3.5-5.1); Sodium 137 MMOL/L (136-145); Total Protein 7.7 G/DL (6.4-8.2)
[2021-12-20] MEDS ORDERED: SODIUM CHLORIDE 0.9% 1,000 ML IV STA (02:03)
[2021-12-20] MEDS ORDERED: DEXTROSE 10% 250 ML BAG IV PRN (02:46)
[2021-12-20] MEDS ORDERED: PROMETHAZINE 25 MG/1 ML VIAL IV PRN (02:46)
[2021-12-20] MEDS ORDERED: GLUCAGON 1 MG VIAL IM PRN (02:46)
[2021-12-20] MEDS ORDERED: NICOTINE 21 MG/24 HR PATCH TRANSDERM PRN (02:46)
[2021-12-20] MEDS ORDERED: ACETAMINOPHEN 325 MG TABLET PO PRN (02:46)
[2021-12-20] MEDS ORDERED: HYDROmorphone 1 MG/1 ML SYRINGE IV PRN (02:46)
[2021-12-20] MEDS ORDERED: POTASSIUM CHLORIDE 20 MEQ TABLET PO ONE ×2 (03:02→09:00)
[2021-12-20] MEDS: HYDROmorphone 1 MG/1 ML SYRINGE IV PRN ×7 (03:24→22:03)
[2021-12-20] MEDS: LACTATED RINGERS 1,000 ML IV SCH ×3 (03:24→22:07)
[2021-12-20] MEDS ORDERED: HYDROmorphone 1 MG/1 ML SYRINGE IV ONE (05:48)
[2021-12-20] MEDS: CLOPIDOGREL 75 MG TABLET PO SCH ×2 (08:20→21:59)
[2021-12-20] MEDS: PANTOPRAZOLE 40 MG TABLET PO SCH (08:20)
[2021-12-20] MEDS: PREGABALIN 100 MG CAPSULE PO SCH ×3 (08:20→21:59)
[2021-12-20] MEDS ORDERED: ENOXAPARIN 40 MG/0.4 ML SYRINGE SUBCUT SCH (09:00)
[2021-12-20] MEDS: ENOXAPARIN 30 MG/0.3 ML SYRINGE SUBCUT SCH (09:54)
[2021-12-20 12:51] LABS: Osmolality,Calculated 279.4 MOS/KG (273-304); Potassium 3.9 MMOL/L (3.5-5.1)
[2021-12-20] MEDS ORDERED: fentaNYL 100 MCG/2 ML VIAL IV ONE (17:02)
[2021-12-20] MEDS ORDERED: DIAZEPAM 5 MG TABLET PO ONE (17:02)
[2021-12-20] MEDS ORDERED: MIDAZOLAM 2 MG/2 ML VIAL IV ONE (17:02)
[2021-12-21] MEDS: HYDROmorphone 1 MG/1 ML SYRINGE IV PRN ×6 (02:03→23:16)
[2021-12-21] MEDS: LACTATED RINGERS 1,000 ML IV SCH ×3 (03:15→18:20)
[2021-12-21] MEDS ORDERED: fentaNYL 100 MCG/2 ML VIAL IV ONE (06:00)
[2021-12-21] MEDS ORDERED: DIAZEPAM 5 MG TABLET PO ONE (06:00)
[2021-12-21] MEDS ORDERED: MIDAZOLAM 2 MG/2 ML VIAL IV ONE (06:00)
[2021-12-21 06:27] LABS: Basophils # 0.1 10*3/uL (0.0-0.2); Basophils % 0.7 % (0.0-0.8); Eosinophils # 0.6 10*3/uL (0.0-0.87); Eosinophils % 7.7 % (0.00-10.9); Hematocrit 36.7 VOL% (42.0-52.0); Hemoglobin 11.5 GM/DL (14.0-18.0); Immature Granulocytes % 0.3 %; Immature Granulocytes Absolute 0.02 #; Lymphocytes # 2.4 10*3/uL (1.4-4.0); Lymphocytes % 31.4 % (21.2-54.2); Mean Corpuscular HGB Conc 31.3 GM/DL (32-36); Mean Corpuscular Volume 85.7 FL (87-102); Mean Platelet Volume 10.4 FL (9.6-12.0); Monocytes # 0.4 10*3/uL (0.11-0.8); Monocytes % 5.8 % (1.7-12.7); Neutrophils % 54.1 % (38.7-73.9); Platelet Count 265 T/CUMM (130-400); Red Blood Count 4.28 MC/CUMM (3.8-5.5); Red Cell Distribution Width 17.4 % (9.3-17.3); White Blood Count 7.6 T/CUMM (4-12)
[2021-12-21 06:45] LABS: Calcium 9.2 MG/DL (8.5-10.1); Osmolality,Calculated 278.3 MOS/KG (273-304)
[2021-12-21] MEDS: SODIUM CHLORIDE 0.45% 1,000 ML IV SCH (07:44)
[2021-12-21] MEDS: PROMETHAZINE INJ 12.5 MG in SODIUM CHLORIDE 0.9% 50 ML IV PRN ×2 (07:57→22:01)
[2021-12-21] MEDS: CLOPIDOGREL 75 MG TABLET PO SCH (08:02)
[2021-12-21] MEDS: PREGABALIN 100 MG CAPSULE PO SCH ×3 (08:02→20:01)
[2021-12-21] MEDS: ENOXAPARIN 30 MG/0.3 ML SYRINGE SUBCUT SCH (08:03)
[2021-12-21] MEDS: PANTOPRAZOLE 40 MG TABLET PO SCH (08:03)
[2021-12-21] MEDS ORDERED: HEPARIN/NACL 0.9% 2 UNITS/ML 4,000 UNIT/2,000 ML BAG IV ONE (09:47)
[2021-12-21] MEDS ORDERED: HEPARIN 5,000 UNIT/1 ML VIAL ONE (10:42)
[2021-12-21] MEDS ORDERED: HEPARIN 5,000 UNIT/1 ML VIAL IV ONE (11:30)
[2021-12-21] MEDS ORDERED: ALTEPLASE 24 MG in SODIUM CHLORIDE 0.9% 480 ML IV SCH (12:00)
[2021-12-21] MEDS: HEPARIN DRIP 25,000 UNITS/500 ML PREMIX IV SCH (12:20)
[2021-12-21 13:24] LABS: PT Patient Result 11.5 SECS (10.5-12.0); Partial Thromboplastin Time 65.1 SECS (23.7-32.9)
[2021-12-21 17:34] LABS: INR 0.9; PT Patient Result 10.5 SECS (10.5-12.0)
[2021-12-21] MEDS ORDERED: HYDROmorphone 1 MG/1 ML SYRINGE IV ONE (17:59)
[2021-12-22 01:38] LABS: Partial Thromboplastin Time 40.9 SECS (23.7-32.9)
[2021-12-22] MEDS: HYDROmorphone 1 MG/1 ML SYRINGE IV PRN ×7 (02:35→22:21)
[2021-12-22 03:08] LABS: Basophils # 0.1 10*3/uL (0.0-0.2); Basophils % 0.7 % (0.0-0.8); Eosinophils # 0.6 10*3/uL (0.0-0.87); Eosinophils % 6.8 % (0.00-10.9); Hematocrit 41.4 VOL% (42.0-52.0); Hemoglobin 12.8 GM/DL (14.0-18.0); Immature Granulocytes % 0.2 %; Immature Granulocytes Absolute 0.02 #; Lymphocytes # 1.7 10*3/uL (1.4-4.0); Lymphocytes % 20.4 % (21.2-54.2); Mean Corpuscular HGB Conc 30.9 GM/DL (32-36); Mean Corpuscular Volume 85.4 FL (87-102); Mean Platelet Volume 9.7 FL (9.6-12.0); Monocytes # 0.5 10*3/uL (0.11-0.8); Monocytes % 6.6 % (1.7-12.7); Neutrophils % 65.3 % (38.7-73.9); Platelet Count 230 T/CUMM (130-400); Red Blood Count 4.85 MC/CUMM (3.8-5.5); Red Cell Distribution Width 17.4 % (9.3-17.3); White Blood Count 8.1 T/CUMM (4-12)
[2021-12-22 03:17] LABS: INR 1.1; PT Patient Result 11.8 SECS (10.5-12.0)
[2021-12-22] MEDS: LACTATED RINGERS 1,000 ML IV SCH ×2 (03:30→11:43)
[2021-12-22 03:31] LABS: Osmolality,Calculated 276.4 MOS/KG (273-304); Potassium 3.9 MMOL/L (3.5-5.1)
[2021-12-22] MEDS: SODIUM CHLORIDE 0.45% 1,000 ML IV SCH (06:00)
[2021-12-22 11:05] VITALS: BP 129/85
[2021-12-22] MEDS: PANTOPRAZOLE 40 MG TABLET PO SCH (11:41)
[2021-12-22] MEDS: PREGABALIN 100 MG CAPSULE PO SCH ×3 (11:41→20:04)
[2021-12-22 12:13] LABS: Partial Thromboplastin Time 36.5 SECS (23.7-32.9)
[2021-12-22] MEDS: oxyCODONE/ACETAMINOPHEN 5-325 MG TABLET PO SCH (20:05)
[2021-12-22] MEDS: RIVAROXABAN 2.5 MG TABLET PO SCH (20:05)
[2021-12-22] MEDS: HEPARIN DRIP 25,000 UNITS/500 ML PREMIX IV SCH (20:10)
[2021-12-22] MEDS ORDERED: ZALEPLON 5 MG CAPSULE PO SCH (21:00)
[2021-12-23] MEDS: HYDROmorphone 1 MG/1 ML SYRINGE IV PRN (03:24)
[2021-12-23 04:03] LABS: Calcium 9.1 MG/DL (8.5-10.1); Osmolality,Calculated 269.8 MOS/KG (273-304); Potassium 3.8 MMOL/L (3.5-5.1)
[2021-12-23] MEDS: oxyCODONE/ACETAMINOPHEN 5-325 MG TABLET PO SCH (09:10)
[2021-12-23] MEDS: PREGABALIN 100 MG CAPSULE PO SCH (09:10)
[2021-12-23] MEDS: PANTOPRAZOLE 40 MG TABLET PO SCH (09:12)
[2021-12-23] MEDS: RIVAROXABAN 2.5 MG TABLET PO SCH (09:13)
== END 2021-12-23 12:20 | disposition home or self-care (01) | DRG 315 ==
LOC: N.ED 00:50 → N.3E 00:50 → SUATTDRO 12-21 11:37 → N.CC 12-21 12:34
PROVIDERS: ADMIT Internal Medicine; ATTEND Internal Medicine
PROC: IRURORE (2021-12-22 12:05)

== ENCOUNTER 2022-01-06 12:47 | Inpatient (IN) ==
[2022-01-06] MEDS ORDERED: SODIUM CHLORIDE 0.9% 1,000 ML IV STA (13:33)
[2022-01-06 14:02] LABS: Basophils # 0.1 10*3/uL (0.0-0.2); Basophils % 0.8 % (0.0-0.8); Eosinophils # 0.2 10*3/uL (0.0-0.87); Eosinophils % 2.6 % (0.00-10.9); Hematocrit 44.4 VOL% (42.0-52.0); Hemoglobin 13.8 GM/DL (14.0-18.0); Immature Granulocytes % 0.2 %; Immature Granulocytes Absolute 0.02 #; Lymphocytes # 1.2 10*3/uL (1.4-4.0); Lymphocytes % 14.1 % (21.2-54.2); Mean Corpuscular HGB Conc 31.1 GM/DL (32-36); Mean Corpuscular Volume 86.4 FL (87-102); Mean Platelet Volume 9.8 FL (9.6-12.0); Monocytes # 0.4 10*3/uL (0.11-0.8); Monocytes % 4.2 % (1.7-12.7); Neutrophils % 78.1 % (38.7-73.9); Platelet Count 394 T/CUMM (130-400); Red Blood Count 5.14 MC/CUMM (3.8-5.5); Red Cell Distribution Width 18.5 % (9.3-17.3); White Blood Count 8.4 T/CUMM (4-12)
[2022-01-06 14:25] LABS: Acetaminophen < 2.0 UG/ML (10-30); Salicylate 5.8 MG/DL (2.8-20)
[2022-01-06 14:27] LABS: Alanine Aminotransferase 12 U/L (16-61); Albumin 3.4 G/DL (3.4-5.0); Alkaline Phosphatase 123 U/L (45-117); Aspartate Amino Transferase 11 U/L (0-37); Bilirubin,Total < 0.39 MG/DL (0.20-1.00); Blood Urea Nitrogen 9 MG/DL (7-18); Calcium 9.1 MG/DL (8.5-10.1); Carbon Dioxide 26 MMOL/L (21-32); Chloride 109 MMOL/L (98-107); Glucose 116 MG/DL (74-106); Potassium 3.2 MMOL/L (3.5-5.1); Sodium 143 MMOL/L (136-145); Total Protein 7.6 G/DL (6.4-8.2)
[2022-01-06] MEDS ORDERED: SODIUM BICARBONATE 50 MEQ/50 ML VIAL IV ONE ×2 (16:02→16:04)
[2022-01-06] MEDS ORDERED: GLUCAGON 1 MG VIAL IM PRN (16:30)
[2022-01-06] MEDS ORDERED: HALOPERIDOL 5 MG/ML AMP IM PRN (16:36)
[2022-01-06] MEDS ORDERED: DEXTROSE 10% 250 ML BAG IV PRN (16:38)
[2022-01-06] MEDS ORDERED: ACETAMINOPHEN 325 MG TABLET PO PRN (16:40)
[2022-01-06 17:20] LABS: Thyroid Stimulating Hormone 0.14 uIU/ml (0.358-3.74)
[2022-01-06] MEDS ORDERED: ENOXAPARIN 40 MG/0.4 ML SYRINGE SUBCUT SCH (21:00)
[2022-01-06] MEDS ORDERED: NICOTINE 14 MG/24 HR PATCH TRANSDERM PRN (21:00)
[2022-01-06] MEDS: PREGABALIN 100 MG CAPSULE PO SCH (22:39)
[2022-01-06] MEDS: PANTOPRAZOLE 40 MG TABLET PO SCH (22:39)
[2022-01-06] MEDS: RIVAROXABAN 2.5 MG TABLET PO SCH (22:39)
[2022-01-07] MEDS: POTASSIUM CHLORIDE INJ 40 MEQ in LACTATED RINGERS 1,000 ML IV SCH ×3 (00:30→09:59)
[2022-01-07] MEDS: PROMETHAZINE 25 MG/1 ML VIAL IM PRN ×2 (03:51→09:32)
[2022-01-07 05:14] LABS: Basophils # 0.1 10*3/uL (0.0-0.2); Basophils % 0.6 % (0.0-0.8); Eosinophils # 0.1 10*3/uL (0.0-0.87); Eosinophils % 0.8 % (0.00-10.9); Hematocrit 41.4 VOL% (42.0-52.0); Immature Granulocytes % 0.3 %; Immature Granulocytes Absolute 0.03 #; Lymphocytes # 1.3 10*3/uL (1.4-4.0); Lymphocytes % 14.8 % (21.2-54.2); Mean Corpuscular HGB Conc 31.4 GM/DL (32-36); Mean Corpuscular Volume 85.4 FL (87-102); Mean Platelet Volume 10.8 FL (9.6-12.0); Monocytes # 0.5 10*3/uL (0.11-0.8); Neutrophils % 77.5 % (38.7-73.9); Platelet Count 342 T/CUMM (130-400); Red Blood Count 4.85 MC/CUMM (3.8-5.5); Red Cell Distribution Width 18.3 % (9.3-17.3); White Blood Count 8.8 T/CUMM (4-12)
[2022-01-07 05:35] LABS: Potassium 4.1 MMOL/L (3.5-5.1)
[2022-01-07 05:37] LABS: Platelet Estimate Normal
[2022-01-07 09:36] LABS: Free T4 (Free Thyroxine) 1.04 NG/DL (0.76-1.46)
[2022-01-07] MEDS: PREGABALIN 100 MG CAPSULE PO SCH ×3 (10:06→22:02)
[2022-01-07] MEDS: PANTOPRAZOLE 40 MG TABLET PO SCH ×2 (10:06→22:03)
[2022-01-07] MEDS: RIVAROXABAN 2.5 MG TABLET PO SCH ×2 (10:06→22:03)
[2022-01-07] MEDS: PIPERACILLIN/TAZOBACTAM 3,375 MG in SODIUM CHLORIDE 0.9% 100 ML IV SCH ×2 (10:39→18:14)
[2022-01-07 11:38] LABS: VBG Base Excess 2.8 MEQ/L (0-4); VBG Oxygen Saturation 99.6 %; VBG PCO2 23.3 MMHG (41-51); VBG PH 7.598; VBG Total CO2 19.3 MMOL/L
[2022-01-07] MEDS: LACTATED RINGERS 1,000 ML IV SCH ×2 (15:15→22:12)
[2022-01-08] MEDS: PIPERACILLIN/TAZOBACTAM 3,375 MG in SODIUM CHLORIDE 0.9% 100 ML IV SCH ×3 (03:12→18:23)
[2022-01-08 04:42] LABS: Basophils # 0.1 10*3/uL (0.0-0.2); Basophils % 0.4 % (0.0-0.8); Hematocrit 44.3 VOL% (42.0-52.0); Hemoglobin 13.9 GM/DL (14.0-18.0); Immature Granulocytes % 0.6 %; Immature Granulocytes Absolute 0.07 #; Lymphocytes # 1.5 10*3/uL (1.4-4.0); Lymphocytes % 12.4 % (21.2-54.2); Mean Corpuscular HGB Conc 31.4 GM/DL (32-36); Mean Platelet Volume 9.8 FL (9.6-12.0); Monocytes # 0.7 10*3/uL (0.11-0.8); Monocytes % 5.8 % (1.7-12.7); Neutrophils % 80.8 % (38.7-73.9); Platelet Count 449 T/CUMM (130-400); Red Blood Count 5.21 MC/CUMM (3.8-5.5); Red Cell Distribution Width 18.9 % (9.3-17.3); White Blood Count 12.2 T/CUMM (4-12)
[2022-01-08 05:04] LABS: Osmolality,Calculated 291.6 MOS/KG (273-304)
[2022-01-08] MEDS: POTASSIUM CHLORIDE INJ 40 MEQ in DEXTROSE 5% 1,000 ML IV SCH ×2 (09:26→21:06)
[2022-01-08] MEDS: hydrALAZINE 20 MG/1 ML VIAL IV SCH ×3 (09:26→21:06)
[2022-01-08] MEDS: PREGABALIN 100 MG CAPSULE PO SCH ×3 (09:27→20:38)
[2022-01-08] MEDS: RIVAROXABAN 2.5 MG TABLET PO SCH ×3 (09:28→20:39)
[2022-01-08] MEDS: PANTOPRAZOLE 40 MG TABLET PO SCH ×3 (09:28→20:38)
[2022-01-08] MEDS: oxyCODONE/ACETAMINOPHEN 5-325 MG TABLET PO SCH ×2 (11:03→22:52)
[2022-01-08] MEDS ORDERED: oxyCODONE/ACETAMINOPHEN 5-325 MG TABLET PO SCH (21:00)
[2022-01-09] MEDS: PIPERACILLIN/TAZOBACTAM 3,375 MG in SODIUM CHLORIDE 0.9% 100 ML IV SCH ×3 (02:40→18:02)
[2022-01-09] MEDS: hydrALAZINE 20 MG/1 ML VIAL IV SCH (03:04)
[2022-01-09 04:51] LABS: Basophils # 0.1 10*3/uL (0.0-0.2); Basophils % 0.6 % (0.0-0.8); Eosinophils % 0.1 % (0.00-10.9); Hematocrit 44.9 VOL% (42.0-52.0); Hemoglobin 14.1 GM/DL (14.0-18.0); Immature Granulocytes Absolute 0.11 #; Lymphocytes # 1.8 10*3/uL (1.4-4.0); Lymphocytes % 16.3 % (21.2-54.2); Mean Corpuscular HGB Conc 31.4 GM/DL (32-36); Mean Corpuscular Volume 85.5 FL (87-102); Mean Platelet Volume 9.7 FL (9.6-12.0); Monocytes # 0.7 10*3/uL (0.11-0.8); Monocytes % 6.3 % (1.7-12.7); Neutrophils % 75.7 % (38.7-73.9); Platelet Count 392 T/CUMM (130-400); Red Blood Count 5.25 MC/CUMM (3.8-5.5); Red Cell Distribution Width 19.1 % (9.3-17.3); White Blood Count 10.8 T/CUMM (4-12)
[2022-01-09 05:15] LABS: Calcium 8.9 MG/DL (8.5-10.1); Osmolality,Calculated 294.4 MOS/KG (273-304)
[2022-01-09] MEDS: POTASSIUM CHLORIDE INJ 40 MEQ in DEXTROSE 5% 1,000 ML IV SCH (05:17)
[2022-01-09] MEDS ORDERED: hydrALAZINE 20 MG/1 ML VIAL IV PRN (06:59)
[2022-01-09] MEDS: DEXTROSE 5% 1,000 ML IV SCH ×2 (07:35→21:09)
[2022-01-09] MEDS ORDERED: SODIUM BICARBONATE 50 MEQ/50 ML VIAL IV ONE (08:23)
[2022-01-09] MEDS ORDERED: SODIUM BICARB INJ 50 MEQ in IV BAG 1 EACH IV ONE (09:00)
[2022-01-09] MEDS: POTASSIUM CHLORIDE 20 MEQ TABLET PO SCH ×2 (09:06→11:09)
[2022-01-09] MEDS: PANTOPRAZOLE 40 MG TABLET PO SCH (09:06)
[2022-01-09] MEDS: PREGABALIN 100 MG CAPSULE PO SCH ×3 (09:06→21:02)
[2022-01-09] MEDS: LOSARTAN 25 MG TABLET PO SCH ×2 (09:06→21:02)
[2022-01-09] MEDS: RIVAROXABAN 2.5 MG TABLET PO SCH ×2 (09:06→21:02)
[2022-01-09] MEDS ORDERED: POTASSIUM CHLORIDE 20 MEQ TABLET PO SCH (11:00)
[2022-01-09] MEDS: oxyCODONE/ACETAMINOPHEN 5-325 MG TABLET PO PRN ×3 (11:09→23:49)
[2022-01-09] MEDS: PROMETHAZINE 25 MG/1 ML VIAL IM PRN (13:40)
[2022-01-09 19:17] LABS: Barbiturates Screen,Urine Negative (Negative); Benzodiazepines Screen,Urine Negative (Negative); Cannabinoid Screen,Urine Negative (Negative); Opiate Screen,Urine Positive (Negative); Phencyclidine Screen,Urine Negative (Negative)
[2022-01-09] MEDS: PANTOPRAZOLE 40 MG VIAL IV SCH (21:01)
[2022-01-09 21:02] LABS: Mucus,Urine Occasional /LPF (Occasional); RBC,Urine 80 /HPF (0-4); Squamous Epithelial Cell,Urine Occasional /HPF (0-10)
[2022-01-09 21:15] LABS: Glucose,Urine (UA) Negative (Negative); Ketones,Urine Trace mg/dL (Negative); Protein,Urine 100 mg/dL (Negative); Urine Appearance Clear (Clear); Urine Color Yellow (Yellow); Urine Specific Gravity 1.015 (1.001-1.035)
[2022-01-09 21:16] LABS: Bilirubin,Urine Small mg/dL (Negative); Blood, Urine Trace mg/dL (Negative); Nitrite,Urine Negative (Negative); Urine Urobilinogen 0.2 eU/dL (<2.0)
[2022-01-10] MEDS: PIPERACILLIN/TAZOBACTAM 3,375 MG in SODIUM CHLORIDE 0.9% 100 ML IV SCH ×3 (02:59→20:46)
[2022-01-10 05:18] LABS: Basophils # 0.1 10*3/uL (0.0-0.2); Eosinophils # 0.2 10*3/uL (0.0-0.87); Eosinophils % 1.5 % (0.00-10.9); Hemoglobin 13.5 GM/DL (14.0-18.0); Immature Granulocytes % 0.5 %; Immature Granulocytes Absolute 0.05 #; Lymphocytes # 2.2 10*3/uL (1.4-4.0); Lymphocytes % 22.2 % (21.2-54.2); Mean Corpuscular HGB Conc 30.7 GM/DL (32-36); Mean Corpuscular Volume 86.4 FL (87-102); Mean Platelet Volume 9.5 FL (9.6-12.0); Monocytes # 0.5 10*3/uL (0.11-0.8); Monocytes % 5.1 % (1.7-12.7); Neutrophils % 69.7 % (38.7-73.9); Platelet Count 347 T/CUMM (130-400); Red Blood Count 5.09 MC/CUMM (3.8-5.5); Red Cell Distribution Width 19.1 % (9.3-17.3); White Blood Count 9.9 T/CUMM (4-12)
[2022-01-10 05:31] LABS: PT Patient Result 11.5 SECS (10.1-12.1)
[2022-01-10] MEDS: PROMETHAZINE 25 MG/1 ML VIAL IM PRN ×2 (05:32→23:15)
[2022-01-10 05:35] LABS: Calcium 9.5 MG/DL (8.5-10.1); Osmolality,Calculated 284.1 MOS/KG (273-304); Potassium 3.2 MMOL/L (3.5-5.1)
[2022-01-10] MEDS: LOSARTAN 25 MG TABLET PO SCH ×2 (09:17→20:45)
[2022-01-10] MEDS: PANTOPRAZOLE 40 MG VIAL IV SCH ×2 (09:17→23:17)
[2022-01-10] MEDS: RIVAROXABAN 2.5 MG TABLET PO SCH ×2 (09:17→20:45)
[2022-01-10] MEDS: oxyCODONE/ACETAMINOPHEN 5-325 MG TABLET PO PRN ×3 (09:17→22:07)
[2022-01-10] MEDS: PREGABALIN 100 MG CAPSULE PO SCH ×3 (09:20→20:45)
[2022-01-10] MEDS: POTASSIUM CHLORIDE RIDER 10 MEQ/100 ML PREMIX IV PRN ×4 (09:21→14:05)
[2022-01-10] MEDS: DEXTROSE 5% 1,000 ML IV SCH ×2 (14:06→23:55)
[2022-01-11] MEDS: PIPERACILLIN/TAZOBACTAM 3,375 MG in SODIUM CHLORIDE 0.9% 100 ML IV SCH ×2 (01:59→10:26)
[2022-01-11 05:20] LABS: Basophils # 0.1 10*3/uL (0.0-0.2); Eosinophils # 0.5 10*3/uL (0.0-0.87); Eosinophils % 5.3 % (0.00-10.9); Hematocrit 45.5 VOL% (42.0-52.0); Hemoglobin 14.2 GM/DL (14.0-18.0); Immature Granulocytes % 0.6 %; Immature Granulocytes Absolute 0.05 #; Lymphocytes # 1.2 10*3/uL (1.4-4.0); Lymphocytes % 13.3 % (21.2-54.2); Mean Corpuscular HGB Conc 31.2 GM/DL (32-36); Mean Corpuscular Volume 86.5 FL (87-102); Mean Platelet Volume 9.7 FL (9.6-12.0); Monocytes # 0.4 10*3/uL (0.11-0.8); Monocytes % 4.5 % (1.7-12.7); Neutrophils % 75.3 % (38.7-73.9); Platelet Count 320 T/CUMM (130-400); Red Blood Count 5.26 MC/CUMM (3.8-5.5); Red Cell Distribution Width 18.8 % (9.3-17.3); White Blood Count 8.8 T/CUMM (4-12)
[2022-01-11] MEDS: oxyCODONE/ACETAMINOPHEN 5-325 MG TABLET PO PRN ×2 (05:29→11:50)
[2022-01-11 05:40] LABS: Calcium 9.1 MG/DL (8.5-10.1); Osmolality,Calculated 275.5 MOS/KG (273-304); Potassium 3.4 MMOL/L (3.5-5.1)
[2022-01-11] MEDS ORDERED: POTASSIUM CHLORIDE 20 MEQ TABLET PO ONE (08:53)
[2022-01-11] MEDS: RIVAROXABAN 2.5 MG TABLET PO SCH (10:23)
[2022-01-11] MEDS: PANTOPRAZOLE 40 MG VIAL IV SCH (10:23)
[2022-01-11] MEDS: PREGABALIN 100 MG CAPSULE PO SCH ×2 (10:24→16:40)
[2022-01-11] MEDS: LOSARTAN 25 MG TABLET PO SCH (10:27)
[2022-01-11 13:33] VITALS: BP 127/85
[2022-01-11] MEDS: DEXTROSE 5% 1,000 ML IV SCH (15:19)
== END 2022-01-11 15:58 | disposition home or self-care (01) | DRG 917 ==
LOC: N.ED 12:47 → N.EDINP 16:30 → SUATTDRO 16:30 → N.TELES 20:02
PROVIDERS: ADMIT Family Medicine; ATTEND Hospitalist